=== PATIENT | female | born 1945 | race Caucasian/White ===

== ENCOUNTER 2018-01-23 07:51 | Emergency (ER) | payer MEDICARE ==
[2018-01-23 07:56] VITALS: PULSE 102
--- NOTE | 2018-01-23 08:14 | ED ---
Upper Extremity HPI - General Chief Complaint: Extremity Injury, Upper Stated Complaint: SLID DOWN STAIRS, BACK AND LEFT SHOULDER INJURY Time Seen by Provider: 01/23/18 07:59 Source: patient, family, RN notes reviewed, old records reviewed Mode of arrival: wheelchair Limitations: no limitations - History of Present Illness Initial Comments: Patient reports that she is a 72-year-old female presents emergency department today chief complaining of a fall down approximately 9 stairs yesterday. Patient states that she was walking down her stairs and slipped at the fourth stair from the top. Patient states that she fell on her bottom and slid down the stairs. Patient states that she has no lower extremity pain or lower back pain. She states that she has no chest pain or shortness of breath or abdominal pain. She denies any specific head injury and denies any loss of consciousness. Patient today complains of left shoulder and clavicular pain. Patient reports that the rail was on the right side. She thinks that she may try to grab onto the rail to prevent her from falling and she pulled her arm. Patient states that she took aspirin earlier today. She has significant ALLERGIES to pain medications and states that she becomes very altered when she would take pain medications.she denies any peripheral paresthesias. She denies any elbow or hand pain. She reports that there is pain with range of motion of her shoulder. - Related Data Home Medications Medication Instructions Recorded Confirmed Albuterol Nebulized [Ventolin 2.5 mg INHALATION RT-Q6H PRN 04/09/14 01/23/18 Nebulized] Ascorbic Acid [Vitamin C] 500 mg PO DAILY 04/09/14 01/23/18 Budesonide [Pulmicort] 1 neb INHALATION RT-BID 04/09/14 01/23/18 Calcium Citrate/Vitamin D3 1 tab PO BID 04/09/14 01/23/18 [Calcium Citrate - Vit D3 Tab] Magnesium 400 mg PO DAILY 04/09/14 01/23/18 Albuterol Sulfate [Proair Hfa] 1 - 2 puff INHALATION RT-Q6H PRN 01/23/18 Aspirin 325 mg PO ONCE 01/23/18 01/23/18 Ferrous Sulfate [Feosol] 325 mg PO DAILY 01/23/18 01/23/18 Ibuprofen [Motrin Ib] 200 mg PO ONCE 01/23/18 01/23/18 Previous Rx's Medication Instructions Recorded Cyclobenzaprine [Flexeril] 5 mg PO TID #15 tablet 01/23/18 Allergies Allergy/AdvReac Type Severity Reaction Status Date / Time acetaminophen [From Tylenol] Allergy Unknown Verified 01/23/18 08:20 Antihistamines - Alkylamine Allergy Anaphylaxis Verified 01/23/18 08:20 lorazepam [From Ativan] Allergy psychotic Verified 01/23/18 08:20 behavior shellfish derived Allergy Swelling Verified 01/23/18 08:20 Sulfa (Sulfonamide Allergy Unknown Verified 01/23/18 08:20 Antibiotics) alprazolam [From Xanax] AdvReac psychotic Verified 01/23/18 08:20 behavior codeine AdvReac Vomiting Verified 01/23/18 08:20 Corticosteroids AdvReac psychotic Verified 01/23/18 08:20 (Glucocorticoids) reaction Review of Systems ROS Statement: Those systems with pertinent positive or pertinent negative responses have been documented in the HPI. ROS Other: All systems not noted in ROS Statement are negative. Past Medical History Past Medical History: Asthma Additional Past Medical History / Comment(s): BRONCHITIS, ANEMIA, POST MENOPAUSAL, CURRENTLY POS OCCULT STOOL History of Any Multi-Drug Resistant Organisms: None Reported Past Surgical History: No Surgical Hx Reported Additional Past Surgical History / Comment(s): EGD 6 Past Anesthesia/Blood Transfusion Reactions: Motion Sickness Additional Past Anesthesia/Blood Transfusion Reaction / Comment(s): NEVER HAS HAD GENERAL ANESTHESIA Past Psychological History: No Psychological Hx Reported Smoking Status: Current every day smoker Past Alcohol Use History: None Reported Past Drug Use History: None Reported - Past Family History Sister(s) Family Medical History: Cancer Additional Family Medical History / Comment(s): COLON CA General Exam - General Exam Comments Initial Comments: this is a 72-year-old female. Patient is alert and oriented 4. No acute distress. Limitations: no limitations General appearance: alert, in no apparent distress Head exam: Present: atraumatic, normocephalic, normal inspection Eye exam: Present: normal appearance, PERRL, EOMI. Absent: scleral icterus, conjunctival injection, periorbital swelling ENT exam: Present: normal exam, mucous membranes moist Neck exam: Present: normal inspection. Absent: tenderness, meningismus, lymphadenopathy Respiratory exam: Present: normal lung sounds bilaterally. Absent: respiratory distress, wheezes, rales, rhonchi, stridor Cardiovascular Exam: Present: regular rate, normal rhythm, normal heart sounds. Absent: systolic murmur, diastolic murmur, rubs, gallop, clicks GI/Abdominal exam: Present: soft, normal bowel sounds. Absent: distended, tenderness, guarding, rebound, rigid Left Shoulder Exam: Present: normal inspection, tenderness (tenderness over the clavicular head.). Absent: full ROM (patient is unable to flex or extend patient shoulder.) Upper Arm exam: Present: normal inspection, full ROM Elbow exam: Present: normal inspection, full ROM Forearm Wrist exam: Present: normal inspection, full ROM Hand Wrist exam: Present: normal inspection, full ROM Course Vital Signs 01/23/18 01/23/18 07:54 10:12 Temperature 98.5 F 98 F Pulse Rate 102 H 102 H Respiratory 20 16 Rate Blood Pressure 140/89 124/86 O2 Sat by Pulse 98 96 Oximetry Medical Decision Making - Medical Decision Making Patient reports that she is a 72-year-old female presents emergency department today chief complaining of a fall down approximately 9 stairs yesterday. Patient denies any otherpain besides left shoulder and clavicle. She has a small contusion over sternal knotch of clavicle. She has limited ROM. Shoulder and clavicle xray show no acute fracture or dislocation. Patient was placed in a sling. Cervical spine xray also obtained and shows no acute process. Patient informed to follow up with PCP and ortho. Discussed return parameters. She reports that she cannot take pain medication, but requests small dose of muscle relaxer. - Radiology Data Radiology results: report reviewed Cspine shows no acute fracture or subluxaation within limitations of exam. Osteopenia. DDD. No acute fracture or dislocation of left clavicle and shoulder. Disposition Clinical Impression: Left shoulder pain, Clavicle fracture, sternal end Disposition: HOME SELF-CARE Condition: Good Instructions: Rotator Cuff Injury (ED) Additional Instructions: patient denies follow-up with environmental specialist. Return to the emergency department if any alarming signs or symptoms occur. Take aspirin or Motrin pain. He cannot see his muscle relaxer as needed for sleep. Return to emergency department if any alarming signs or symptoms occur. Prescriptions: Cyclobenzaprine [Flexeril] 5 mg PO TID #15 tablet Referrals: Adam Blakely DO [Primary Care Provider] - 1-2 days Oli Noel DO [Doctor of Osteopathic Medicine] - 1-2 days Sae Pierre MD [STAFF PHYSICIAN] - 1-2 days Adam Silverman DO [Doctor of Osteopathic Medicine] - 1-2 days Time of Disposition: 09:41
--- NOTE | 2018-01-23 08:36 | XR ---
Cervical spine HISTORY: Trauma and pain 3 views of the cervical spine No comparisons Cervical vertebral bodies show preserved height and alignment, bone mineralization is reduced. There is spondylosis present especially at C4-5, C5-6 with associated loss of disc height. Prevertebral sof t tissues are normal. Possible carotid artery calcifications noted incidentally. Odontoid view somewh at limited. IMPRESSION: No acute fracture or subluxation is evident within the limitations of the exam. Osteopeni a. Degenerative disc disease.
--- NOTE | 2018-01-23 08:46 | XR ---
EXAMINATION TYPE: XR shoulder complete LT, XR clavicle LT DATE OF EXAM: 01/23/2018 CLINICAL HISTORY: Left shoulder and clavicular pain TECHNIQUE: Three views of the left shoulder are obtained. Two views of left clavicle are obtained. COMPARISON: None. FINDINGS: Osseous structures are demineralized which is noted to lower radiographic sensitivity. The re is no acute fracture/dislocation evident in the left shoulder. The acromioclavicular and glenohum eral joint spaces appear within normal limits. The visualized ribs are intact and unremarkable. 2 views of left clavicle show no acute fracture. There is well-defined deformity proximal clavicle fa voring product of old trauma. Overlying soft tissue is unremarkable. Sternoclavicular joint is felt m aintained. IMPRESSION: There is no acute fracture or dislocation in the left clavicle or shoulder.
[2018-01-23 10:15] VITALS: BP 124/86; RESP 16; TEMP 98
--- NOTE | 2018-01-24 02:47 | CDI ---
Documentation Clarification OP Dear Shaylee Mcdowell PAC Please do addendum to ED report for missing clavicle fracture specific site (RT/ LT) Thank you, Sourav Horton [employer] Home [employer] If you have any questions, please contact Valve Inserter at [phone] [facility]
== END 2018-01-23 10:09 | disposition home or self-care (01) ==
LOC: EC 07:51
DX: M25.512 Pain in left shoulder (principal); J45.909 Unspecified asthma, uncomplicated; D64.9 Anemia, unspecified; F17.200 Nicotine dependence, unspecified, uncomplicated; Z79.1 Long term (current) use of non-steroidal anti-inflammatories (NSAID); Z79.51 Long term (current) use of inhaled steroids; Z79.82 Long term (current) use of aspirin; Z79.899 Other long term (current) drug therapy; Z88.6 Allergy status to analgesic agent; Z88.8 Allergy status to other drugs, medicaments and biological substances; Z91.013 Allergy to seafood; Z88.2 Allergy status to sulfonamides; Z88.5 Allergy status to narcotic agent; W10.9XXA Fall (on) (from) unspecified stairs and steps, initial encounter; Y93.01 Activity, walking, marching and hiking; Y92.009 Unspecified place in unspecified non-institutional (private) residence as the place of occurrence of the external cause
CPT/HCPCS: 72040; 99284

== ENCOUNTER 2018-03-22 09:17 | Emergency (ER) | payer MEDICARE ==
[2018-03-22] MEDS ORDERED: SODIUM CHLORIDE 0.9% 1,000 ML IV STA (10:02)
[2018-03-22] MEDS ORDERED: SODIUM CHLORIDE 0.9% 500 ML IV STA (10:02)
[2018-03-22] MEDS ORDERED: ONDANSETRON 4 MG/2 ML VIAL IVP STA (10:04)
[2018-03-22] MEDS ORDERED: FAMOTIDINE 20 MG/2 ML VIAL IV STA (10:04)
--- NOTE | 2018-03-22 10:07 | ED ---
General Adult HPI - General Chief complaint: Nausea/Vomiting/Diarrhea Stated complaint: vomiting Time Seen by Provider: 03/22/18 09:35 Source: patient, family, RN notes reviewed Mode of arrival: wheelchair Limitations: no limitations - History of Present Illness Initial comments: Patient is a pleasant 72-year-old female presenting to the emergency Department with vomiting. Onset of symptoms was sometime around 4 AM. Patient has had several episodes. Patient does feel somewhat lightheaded. Patient did have a mild headache however that is near resolved with aspirin. No constipation or diarrhea. No significant abdominal discomfort. No chest discomfort. Patient does feel slightly more short of breath than her normal COPD however states it is not that bad. Patient refuses breathing treatment at this time. - Related Data Home Medications Medication Instructions Recorded Confirmed Albuterol Nebulized [Ventolin 2.5 mg INHALATION RT-BID PRN 04/09/14 03/22/18 Nebulized] Ascorbic Acid [Vitamin C] 500 mg PO DAILY 04/09/14 03/22/18 Budesonide [Pulmicort] 0.5 mg INHALATION RT-BID 04/09/14 03/22/18 Magnesium 400 mg PO DAILY 04/09/14 03/22/18 Albuterol Sulfate [Proair Hfa] 1 - 2 puff INHALATION RT-Q6H PRN 01/23/18 Aspirin 325 mg PO DAILY 01/23/18 03/22/18 B-Total Liquid 1 oz PO DAILY 03/22/18 03/22/18 Calcium Citrate 250 mg PO DAILY 03/22/18 03/22/18 Cholecalciferol [Vitamin D3] 4,000 unit PO DAILY 03/22/18 03/22/18 Ferrous Sulfate [Feosol] 325 mg PO DAILY 03/22/18 03/22/18 Previous Rx's Medication Instructions Recorded Azithromycin [Zithromax Z-pack] 250 mg PO DIRECTED #6 tab 03/22/18 Metoclopramide HCl [Reglan] 10 mg PO Q6HR PRN #15 tablet 03/22/18 Allergies Allergy/AdvReac Type Severity Reaction Status Date / Time acetaminophen [From Tylenol] Allergy Unknown Verified 03/22/18 09:45 Antihistamines - Alkylamine Allergy Anaphylaxis Verified 03/22/18 09:45 lorazepam [From Ativan] Allergy psychotic Verified 03/22/18 09:45 behavior shellfish derived Allergy Swelling Verified 03/22/18 09:45 Sulfa (Sulfonamide Allergy Unknown Verified 03/22/18 09:45 Antibiotics) alprazolam [From Xanax] AdvReac psychotic Verified 03/22/18 09:45 behavior codeine AdvReac Vomiting Verified 03/22/18 09:45 Corticosteroids AdvReac psychotic Verified 03/22/18 09:45 (Glucocorticoids) reaction Review of Systems ROS Statement: Those systems with pertinent positive or pertinent negative responses have been documented in the HPI. ROS Other: All systems not noted in ROS Statement are negative. Constitutional: Denies: fever Eyes: Denies: eye pain ENT: Denies: ear pain Respiratory: Denies: cough Cardiovascular: Denies: chest pain Endocrine: Denies: fatigue Gastrointestinal: Reports: nausea, vomiting Genitourinary: Denies: dysuria Musculoskeletal: Denies: back pain Skin: Denies: rash Neurological: Denies: weakness Past Medical History Past Medical History: Asthma Additional Past Medical History / Comment(s): BRONCHITIS, ANEMIA, POST MENOPAUSAL, CURRENTLY POS OCCULT STOOL History of Any Multi-Drug Resistant Organisms: None Reported Past Surgical History: No Surgical Hx Reported Additional Past Surgical History / Comment(s): EGD 04-10-14 Past Anesthesia/Blood Transfusion Reactions: Motion Sickness Additional Past Anesthesia/Blood Transfusion Reaction / Comment(s): NEVER HAS HAD GENERAL ANESTHESIA Past Psychological History: No Psychological Hx Reported Smoking Status: Current every day smoker Past Alcohol Use History: None Reported Past Drug Use History: None Reported - Past Family History Sister(s) Family Medical History: Cancer Additional Family Medical History / Comment(s): COLON [place] General Exam Limitations: no limitations General appearance: alert, in no apparent distress Head exam: Present: atraumatic Eye exam: Present: normal appearance, PERRL ENT exam: Present: normal oropharynx Neck exam: Present: normal inspection Respiratory exam: Present: normal lung sounds bilaterally Cardiovascular Exam: Present: regular rate, normal rhythm GI/Abdominal exam: Present: soft, normal bowel sounds. Absent: distended, tenderness, guarding, rigid, pulsatile mass Extremities exam: Present: normal inspection. Absent: pedal edema, calf tenderness Neurological exam: Present: alert, CN II-XII intact. Absent: motor sensory deficit Psychiatric exam: Present: normal affect, normal mood Skin exam: Present: normal color Course Vital Signs 03/22/18 03/22/18 03/22/18 09:23 11:05 13:14 Temperature 98.1 F Pulse Rate 97 69 68 Respiratory 18 20 18 Rate Blood Pressure 113/71 109/68 115/78 O2 Sat by Pulse 95 96 94 L Oximetry EKG Findings - EKG Comments: EKG Findings:: Sinus rhythm at 86. UT 200. QRS 96. QT 400. QTc 478. Normal axis. Incomplete right bundle-branch block. No acute ST change. Medical Decision Making - Medical Decision Making Patient reevaluated and resting comfortably in bed. Patient is updated on results. Patient is updated regarding concerns for pneumonia and elevated white blood cell count. Patient is recommended admission with IV antibiotics. Patient refuses. Patient states she is unable to state why this time. Patient does demonstrate medical decision making. Family is present. - Lab Data Result diagrams: 03/22/18 10:55 03/22/18 10:55 Lab Results 03/22/18 03/22/18 03/22/18 Range/Units 10:55 10:55 10:55 WBC 20.7 H (3.8-10.6) k/uL RBC 4.81 (3.80-5.40) m/uL Hgb 13.9 (11.4-16.0) gm/dL Hct 42.8 (34.0-46.0) % MCV 89.0 (80.0-100.0) fL MCH 28.9 (25.0-35.0) pg MCHC 32.5 (31.0-37.0) g/dL RDW 13.8 (11.5-15.5) % Plt Count 301 (150-450) k/uL Neutrophils % 91 % Lymphocytes % 6 % Monocytes % 2 % Eosinophils % 0 % Basophils % 0 % Neutrophils # 18.8 H (1.3-7.7) k/uL Lymphocytes # 1.2 (1.0-4.8) k/uL Monocytes # 0.4 (0-1.0) k/uL Eosinophils # 0.1 (0-0.7) k/uL Basophils # 0.0 (0-0.2) k/uL Sodium 142 (137-145) mmol/L Potassium 4.1 (3.5-5.1) mmol/L Chloride 103 (98-107) mmol/L Carbon Dioxide 27 (22-30) mmol/L Anion Gap 12 mmol/L BUN 18 H (7-17) mg/dL Creatinine 0.70 (0.52-1.04) mg/dL Est GFR (CKD-EPI)AfAm >90 (>60 ml/min/1.73 sqM) Est GFR (CKD-EPI)NonAf 87 (>60 ml/min/1.73 sqM) Glucose 90 (74-99) mg/dL Calcium 10.2 (8.4-10.2) mg/dL Total Bilirubin 1.0 (0.2-1.3) mg/dL AST 30 (14-36) U/L ALT 27 (9-52) U/L Alkaline Phosphatase 68 (38-126) U/L Total Creatine Kinase 54 (30-135) U/L CK-MB (CK-2) 0.9 (0.0-2.4) ng/mL CK-MB (CK-2) Rel Index 1.7 Troponin I <0.012 (0.000-0.034) ng/mL Total Protein 6.8 (6.3-8.2) g/dL Albumin 4.1 (3.5-5.0) g/dL Amylase 43 (30-110) U/L Lipase 86 (23-300) U/L Urine Color Urine Appearance (Clear) Urine pH (5.0-8.0) Ur Specific [place] (1.001-1.035) Urine Protein (Negative) Urine Glucose (UA) (Negative) Urine Ketones (Negative) Urine Blood (Negative) Urine Nitrite (Negative) Urine Bilirubin (Negative) Urine Urobilinogen (<2.0) mg/dL Ur Leukocyte Esterase (Negative) 03/22/18 Range/Units 10:55 WBC (3.8-10.6) k/uL RBC (3.80-5.40) m/uL Hgb (11.4-16.0) gm/dL Hct (34.0-46.0) % MCV (80.0-100.0) fL MCH (25.0-35.0) pg MCHC (31.0-37.0) g/dL RDW (11.5-15.5) % Plt Count (150-450) k/uL Neutrophils % % Lymphocytes % % Monocytes % % Eosinophils % % Basophils % % Neutrophils # (1.3-7.7) k/uL Lymphocytes # (1.0-4.8) k/uL Monocytes # (0-1.0) k/uL Eosinophils # (0-0.7) k/uL Basophils # (0-0.2) k/uL Sodium (137-145) mmol/L Potassium (3.5-5.1) mmol/L Chloride (98-107) mmol/L Carbon Dioxide (22-30) mmol/L Anion Gap mmol/L BUN (7-17) mg/dL Creatinine (0.52-1.04) mg/dL Est GFR (CKD-EPI)AfAm (>60 ml/min/1.73 sqM) Est GFR (CKD-EPI)NonAf (>60 ml/min/1.73 sqM) Glucose (74-99) mg/dL Calcium (8.4-10.2) mg/dL Total Bilirubin (0.2-1.3) mg/dL AST (14-36) U/L ALT (9-52) U/L Alkaline Phosphatase (38-126) U/L Total Creatine Kinase (30-135) U/L CK-MB (CK-2) (0.0-2.4) ng/mL CK-MB (CK-2) Rel Index Troponin I (0.000-0.034) ng/mL Total Protein (6.3-8.2) g/dL Albumin (3.5-5.0) g/dL Amylase (30-110) U/L Lipase (23-300) U/L Urine Color Light Yellow Urine Appearance Clear (Clear) Urine pH 7.0 (5.0-8.0) Ur Specific [place] 1.008 (1.001-1.035) Urine Protein Negative (Negative) Urine Glucose (UA) Negative (Negative) Urine Ketones Trace H (Negative) Urine Blood Negative (Negative) Urine Nitrite Negative (Negative) Urine Bilirubin Negative (Negative) Urine Urobilinogen <2.0 (<2.0) mg/dL Ur Leukocyte Esterase Negative (Negative) - Radiology Data Radiology results: image reviewed (Left lower lobe infiltrate) Disposition Clinical Impression: Vomiting, Pneumonia Disposition: Left Against Medical Advice Condition: Stable Instructions: Acute Nausea and Vomiting (ED), Community Acquired Pneumonia (ED) Additional Instructions: Please follow-up to primary care physician in the next day or 2 for recheck. Return for difficulty in breathing, uncontrolled vomiting, pain, fever, worsening symptoms or other concerns. You're leaving AGAINST MEDICAL ADVICE. Prescriptions: Azithromycin [Zithromax Z-pack] 250 mg PO DIRECTED #6 tab Metoclopramide HCl [Reglan] 10 mg PO Q6HR PRN #15 tablet PRN Reason: Nausea Is patient prescribed a controlled substance at d/c from ED?: No Referrals: Adam Blakely DO [Primary Care Provider] - 1-2 days Time of Disposition: 13:29
[2018-03-22 11:22] LABS: Appearance,Urine Clear (Clear); Bilirubin,Urine Negative (Negative); Blood,Urine Negative (Negative); Color,Urine Light Yellow; Glucose,Urine (UA) Negative (Negative); Ketones,Urine Trace (Negative); Leukocyte Esterase,Urine Negative (Negative); Nitrite,Urine Negative (Negative); Protein,Urine Negative (Negative); Specific Gravity,Urine 1.008 (1.001-1.035); Urobilinogen,Urine <2.0 mg/dL (<2.0)
[2018-03-22 11:34] LABS: ALT 27 U/L (9-52); AST 30 U/L (14-36); Albumin 4.1 g/dL (3.5-5.0); Alkaline Phosphatase 68 U/L (38-126); Amylase 43 U/L (30-110); Anion Gap 12 mmol/L; Blood Urea Nitrogen 18 mg/dL (7-17); Calcium 10.2 mg/dL (8.4-10.2); Carbon Dioxide 27 mmol/L (22-30); Chloride 103 mmol/L (98-107); Glucose 90 mg/dL (74-99); Lipase 86 U/L (23-300); Potassium 4.1 mmol/L (3.5-5.1); Sodium 142 mmol/L (137-145); Total Protein 6.8 g/dL (6.3-8.2)
[2018-03-22 11:41] LABS: Basophils % (A) 0 %; Eosinophils # (A) 0.1 k/uL (0-0.7); Eosinophils % (A) 0 %; HCT 42.8 % (34.0-46.0); HGB 13.9 gm/dL (11.4-16.0); Lymphocytes # (A) 1.2 k/uL (1.0-4.8); Lymphocytes % (A) 6 %; MCH 28.9 pg (25.0-35.0); MCHC 32.5 g/dL (31.0-37.0); Mean Platelet Volume 6.3; Monocytes # (A) 0.4 k/uL (0-1.0); Monocytes % (A) 2 %; Neutrophils # (A) 18.8 k/uL (1.3-7.7); Neutrophils % (A) 91 %; Platelet Count 301 k/uL (150-450); RBC 4.81 m/uL (3.80-5.40); RDW 13.8 % (11.5-15.5); WBC 20.7 k/uL (3.8-10.6)
[2018-03-22 11:51] LABS: Creatine Kinase 54 U/L (30-135)
[2018-03-22 12:02] LABS: Creatine Kinase MB 0.9 ng/mL (0.0-2.4); Troponin I <0.012 ng/mL (0.000-0.034)
--- NOTE | 2018-03-22 12:07 | XR ---
EXAMINATION TYPE: XR chest 2V DATE OF EXAM: 03/22/2018 COMPARISON: NONE TECHNIQUE: PA and lateral views submitted. HISTORY: Shortness of breath FINDINGS: The lungs are clear and there is no pneumothorax or pleural effusion. Hyperinflation suggests COPD a nd there is biapical pleural thickening. Hypertrophic and degenerative change of the spine is seen of subsegmental consolidation at the left lung base. IMPRESSION: 1. COPD with left basilar infiltrate.
[2018-03-22 13:16] VITALS: RESP 18
[2018-03-22] MEDS ORDERED: cefTRIAXone IN SWFI 1,000 MG/10 ML SYRINGE IVP STA (13:26)
[2018-03-22 13:39] VITALS: BP 129/81; PULSE 96; TEMP 97.1
== END 2018-03-22 13:56 | disposition left against medical advice (07) ==
LOC: EC 09:17
DX: J18.9 Pneumonia, unspecified organism (principal); R11.2 Nausea with vomiting, unspecified; R42 Dizziness and giddiness; R51 Headache; J45.909 Unspecified asthma, uncomplicated; D64.9 Anemia, unspecified; F17.200 Nicotine dependence, unspecified, uncomplicated; Z79.82 Long term (current) use of aspirin; Z79.899 Other long term (current) drug therapy; Z88.5 Allergy status to narcotic agent; Z88.2 Allergy status to sulfonamides; Z91.013 Allergy to seafood; Z88.6 Allergy status to analgesic agent; Z88.8 Allergy status to other drugs, medicaments and biological substances; Z53.29 Procedure and treatment not carried out because of patient's decision for other reasons
CPT/HCPCS: 36415; 93005; 80053; 82150; 82550; 82553; 83690; 84484; 85025; 81003; 71046; 99284; 96374; 96375; 96361 ×3; J0696

== ENCOUNTER 2020-04-02 10:59 | Emergency (ER) | payer MEDICARE ==
[2020-04-02 11:12] VITALS: RESP 18
[2020-04-02] MEDS ORDERED: SODIUM CHLORIDE 0.9% 500 ML 500 ML IV STA (11:27)
--- NOTE | 2020-04-02 11:30 | ED ---
General Adult HPI - General Chief complaint: Weakness Stated complaint: copd/unable to eat Time Seen by Provider: 04/02/20 11:16 Source: patient, RN notes reviewed Mode of arrival: ambulatory Limitations: no limitations - History of Present Illness Initial comments: 74-year-old female with a past medical history of COPD, anemia, bronchitis presents to the emergency department for multiple complaints. Patient states that last week she had some increased shortness of breath. States she noticed this when she was walking out to the road to get the mail. Patient states it improved but it made her very anxious and she has not been able to eat or drink. States that she is concerned her hemoglobin to be low which made her fall several years ago. Patient states that she believes she cannot eat or drink anything because of anxiety. States she doesn't have an appetite and can't force herself to drink. Patient denies chest pain. Denies abdominal pain. Denies nausea vomiting diarrhea.patient denies any increased shortness of breath specifically at this time. Patient has no other complaints at this time including chest pain, abdominal pain, nausea or vomiting, headache, or visual changes. - Related Data Home Medications Medication Instructions Recorded Confirmed Albuterol Nebulized [Ventolin 2.5 mg INHALATION RT-BID PRN 04/09/14 03/22/18 Nebulized] Ascorbic Acid [Vitamin C] 500 mg PO DAILY 04/09/14 03/22/18 Budesonide [Pulmicort] 0.5 mg INHALATION RT-BID 04/09/14 03/22/18 Magnesium 400 mg PO DAILY 04/09/14 03/22/18 Albuterol Sulfate [Proair Hfa] 1 - 2 puff INHALATION RT-Q6H PRN 01/23/18 03/22/18 Aspirin 325 mg PO DAILY 01/23/18 03/22/18 B-Total Liquid 1 oz PO DAILY 03/22/18 03/22/18 Calcium Citrate 250 mg PO DAILY 03/22/18 03/22/18 Cholecalciferol [Vitamin D3] 4,000 unit PO DAILY 03/22/18 03/22/18 Ferrous Sulfate [Feosol] 325 mg PO DAILY 03/22/18 03/22/18 Previous Rx's Medication Instructions Recorded Azithromycin [Zithromax Z-pack] 250 mg PO DIRECTED #6 tab 03/22/18 Metoclopramide HCl [Reglan] 10 mg PO Q6HR PRN #15 tablet 03/22/18 Allergies Allergy/AdvReac Type Severity Reaction Status Date / Time acetaminophen [From Tylenol] Allergy Unknown Verified 04/02/20 11:13 Antihistamines - Alkylamine Allergy Anaphylaxis Verified 04/02/20 11:13 lorazepam [From Ativan] Allergy psychotic Verified 04/02/20 11:13 behavior shellfish derived Allergy Swelling Verified 04/02/20 11:13 Sulfa (Sulfonamide Allergy Unknown Verified 04/02/20 11:13 Antibiotics) alprazolam [From Xanax] AdvReac psychotic Verified 04/02/20 11:13 behavior codeine AdvReac Vomiting Verified 04/02/20 11:13 Corticosteroids AdvReac psychotic Verified 04/02/20 11:13 (Glucocorticoids) reaction Review of Systems ROS Statement: Those systems with pertinent positive or pertinent negative responses have been documented in the HPI. ROS Other: All systems not noted in ROS Statement are negative. Past Medical History Past Medical History: Asthma, COPD Additional Past Medical History / Comment(s): BRONCHITIS, ANEMIA, POST MENOPAUSAL, CURRENTLY POS OCCULT STOOL History of Any Multi-Drug Resistant Organisms: None Reported Past Surgical History: No Surgical Hx Reported Additional Past Surgical History / Comment(s): EGD 6-04-18 Past Anesthesia/Blood Transfusion Reactions: Motion Sickness Additional Past Anesthesia/Blood Transfusion Reaction / Comment(s): NEVER HAS HAD GENERAL ANESTHESIA Past Psychological History: Anxiety Smoking Status: Current every day smoker Past Alcohol Use History: None Reported Past Drug Use History: None Reported - Past Family History Sister(s) Family Medical History: Cancer Additional Family Medical History / Comment(s): COLON [place] General Exam Limitations: no limitations General appearance: alert, in no apparent distress Head exam: Present: atraumatic, normocephalic, normal inspection Eye exam: Present: normal appearance, PERRL, EOMI. Absent: scleral icterus, conjunctival injection, periorbital swelling ENT exam: Present: normal exam, mucous membranes moist Neck exam: Present: normal inspection, full ROM. Absent: tenderness, meningismu s, lymphadenopathy Respiratory exam: Present: normal lung sounds bilaterally. Absent: respiratory distress, wheezes, rales, rhonchi, stridor Cardiovascular Exam: Present: regular rate, normal rhythm, normal heart sounds. Absent: systolic murmur, diastolic murmur, rubs, gallop, clicks GI/Abdominal exam: Present: soft, normal bowel sounds. Absent: distended, tenderness, guarding, rebound, rigid Neurological exam: Present: alert Course Vital Signs 04/02/20 11:08 Temperature 98.2 F Pulse Rate 86 Respiratory 18 Rate Blood Pressure 115/80 O2 Sat by Pulse 97 Oximetry EKG Findings - EKG Comments: EKG Findings:: Normal sinus rhythm, ventricular rate 90, CO int 180, QTc 462 Medical Decision Making - Medical Decision Making Vitals are stable. Patient is well-appearing. Patient presents as she has not been having much of an appetite. Patient states she never has much of an appetite. States she has not been eating or drinking as of this. CBC CMP and her [place]. Troponin is negative. Urinalysis is negative. No ketones. EKG is unremarkable. Patient was given fluids and reevaluated. She does feel a little bit better. I had a lengthy discussion with patient about how to increase her food and drink. Patient also drinks 8 cups of coffee per day and will limit this as this could be contributing to feelings of anxiety and fullness. Patient and her daughter are both comfortable with patient going home. I did offer coronavirus testing but family refuses stating that she has not been out of the house and does not want this testing. They will follow up with her primary care. However they will return for any worsening symptoms.I discussed this case with attending Dr. Nguyễn who agrees with this assessment and treatment plan. - Lab Data Result diagrams: 04/02/20 12:05 04/02/20 12:05 Lab Results 04/02/20 04/02/20 04/02/20 Range/Units 12:05 12:05 12:05 WBC 8.5 (3.8-10.6) k/uL RBC 4.54 (3.80-5.40) m/uL Hgb 12.8 (11.4-16.0) gm/dL Hct 40.8 (34.0-46.0) % MCV 89.8 (80.0-100.0) fL MCH 28.2 (25.0-35.0) pg MCHC 31.4 (31.0-37.0) g/dL RDW 12.5 (11.5-15.5) % Plt Count 446 (150-450) k/uL Neutrophils % 85 % Lymphocytes % 9 % Monocytes % 3 % Eosinophils % 1 % Basophils % 0 % Neutrophils # 7.2 (1.3-7.7) k/uL Lymphocytes # 0.8 L (1.0-4.8) k/uL Monocytes # 0.3 (0-1.0) k/uL Eosinophils # 0.1 (0-0.7) k/uL Basophils # 0.0 (0-0.2) k/uL Hypochromasia Slight PT 10.1 (9.0-12.0) sec INR 1.0 (<1.2) APTT 23.8 (22.0-30.0) sec Sodium (137-145) mmol/L Potassium (3.5-5.1) mmol/L Chloride (98-107) mmol/L Carbon Dioxide (22-30) mmol/L Anion Gap mmol/L BUN (7-17) mg/dL Creatinine (0.52-1.04) mg/dL Est GFR (CKD-EPI)AfAm (>60 ml/min/1.73 sqM) Est GFR (CKD-EPI)NonAf (>60 ml/min/1.73 sqM) Glucose (74-99) mg/dL Plasma Lactic Acid Blas (0.7-2.0) mmol/L Calcium (8.4-10.2) mg/dL Magnesium (1.6-2.3) mg/dL Total Bilirubin (0.2-1.3) mg/dL AST (14-36) U/L ALT (4-34) U/L Alkaline Phosphatase (38-126) U/L Troponin I (0.000-0.034) ng/mL NT-Pro-B Natriuret Pep pg/mL Total Protein (6.3-8.2) g/dL Albumin (3.5-5.0) g/dL Urine Color Yellow Urine Appearance Clear (Clear) Urine pH 7.5 (5.0-8.0) Ur Specific [place] 1.012 (1.001-1.035) Urine Protein Negative (Negative) Urine Glucose (UA) Negative (Negative) Urine Ketones Negative (Negative) Urine Blood Negative (Negative) Urine Nitrite Negative (Negative) Urine Bilirubin Negative (Negative) Urine Urobilinogen <2.0 (<2.0) mg/dL Ur Leukocyte Esterase Negative (Negative) 04/02/20 04/02/20 04/02/20 Range/Units 12:05 12:05 12:05 WBC (3.8-10.6) k/uL RBC (3.80-5.40) m/uL Hgb (11.4-16.0) gm/dL Hct (34.0-46.0) % MCV (80.0-100.0) fL MCH (25.0-35.0) pg MCHC (31.0-37.0) g/dL RDW (11.5-15.5) % Plt Count (150-450) k/uL Neutrophils % % Lymphocytes % % Monocytes % % Eosinophils % % Basophils % % Neutrophils # (1.3-7.7) k/uL Lymphocytes # (1.0-4.8) k/uL Monocytes # (0-1.0) k/uL Eosinophils # (0-0.7) k/uL Basophils # (0-0.2) k/uL Hypochromasia PT (9.0-12.0) sec INR (<1.2) APTT (22.0-30.0) sec Sodium 138 (137-145) mmol/L Potassium 4.2 (3.5-5.1) mmol/L Chloride 104 (98-107) mmol/L Carbon Dioxide 27 (22-30) mmol/L Anion Gap 7 mmol/L BUN 12 (7-17) mg/dL Creatinine 0.61 (0.52-1.04) mg/dL Est GFR (CKD-EPI)AfAm >90 (>60 ml/min/1.73 sqM) Est GFR (CKD-EPI)NonAf >90 (>60 ml/min/1.73 sqM) Glucose 97 (74-99) mg/dL Plasma Lactic Acid Blas 1.0 (0.7-2.0) mmol/L Calcium 9.6 (8.4-10.2) mg/dL Magnesium 2.1 (1.6-2.3) mg/dL Total Bilirubin 0.2 (0.2-1.3) mg/dL AST 27 (14-36) U/L ALT 17 (4-34) U/L Alkaline Phosphatase 70 (38-126) U/L Troponin I <0.012 (0.000-0.034) ng/mL NT-Pro-B Natriuret Pep pg/mL Total Protein 6.5 (6.3-8.2) g/dL Albumin 3.5 (3.5-5.0) g/dL Urine Color Urine Appearance (Clear) Urine pH (5.0-8.0) Ur Specific [place] (1.001-1.035) Urine Protein (Negative) Urine Glucose (UA) (Negative) Urine Ketones (Negative) Urine Blood (Negative) Urine Nitrite (Negative) Urine Bilirubin (Negative) Urine Urobilinogen (<2.0) mg/dL Ur Leukocyte Esterase (Negative) 04/02/20 Range/Units 12:05 WBC (3.8-10.6) k/uL RBC (3.80-5.40) m/uL Hgb (11.4-16.0) gm/dL Hct (34.0-46.0) % MCV (80.0-100.0) fL MCH (25.0-35.0) pg MCHC (31.0-37.0) g/dL RDW (11.5-15.5) % Plt Count (150-450) k/uL Neutrophils % % Lymphocytes % % Monocytes % % Eosinophils % % Basophils % % Neutrophils # (1.3-7.7) k/uL Lymphocytes # (1.0-4.8) k/uL Monocytes # (0-1.0) k/uL Eosinophils # (0-0.7) k/uL Basophils # (0-0.2) k/uL Hypochromasia PT (9.0-12.0) sec INR (<1.2) APTT (22.0-30.0) sec Sodium (137-145) mmol/L Potassium (3.5-5.1) mmol/L Chloride (98-107) mmol/L Carbon Dioxide (22-30) mmol/L Anion Gap mmol/L BUN (7-17) mg/dL Creatinine (0.52-1.04) mg/dL Est GFR (CKD-EPI)AfAm (>60 ml/min/1.73 sqM) Est GFR (CKD-EPI)NonAf (>60 ml/min/1.73 sqM) Glucose (74-99) mg/dL Plasma Lactic Acid Blas (0.7-2.0) mmol/L Calcium (8.4-10.2) mg/dL Magnesium (1.6-2.3) mg/dL Total Bilirubin (0.2-1.3) mg/dL AST (14-36) U/L ALT (4-34) U/L Alkaline Phosphatase (38-126) U/L Troponin I (0.000-0.034) ng/mL NT-Pro-B Natriuret Pep 149 pg/mL Total Protein (6.3-8.2) g/dL Albumin (3.5-5.0) g/dL Urine Color Urine Appearance (Clear) Urine pH (5.0-8.0) Ur Specific [place] (1.001-1.035) Urine Protein (Negative) Urine Glucose (UA) (Negative) Urine Ketones (Negative) Urine Blood (Negative) Urine Nitrite (Negative) Urine Bilirubin (Negative) Urine Urobilinogen (<2.0) mg/dL Ur Leukocyte Esterase (Negative) Disposition Clinical Impression: Decreased appetite Disposition: TRANSFER TO PSYCH HOSP/UNIT Condition: Fair Instructions (If sedation given, give patient instructions): Weakness (ED) Additional Instructions: Please try increasing your intake with soft foods, Pedialyte, Gatorade, and water. Follow-up with your primary care provider in one to 2 days. If you have any worsening symptoms return here to the emergency room. Is patient prescribed a controlled substance at d/c from ED?: No Referrals: Adam Blakely DO [Primary Care Provider] - 1-2 days Time of Disposition: 13:34
[2020-04-02 12:29] LABS: Basophils % (A) 0 %; Eosinophils # (A) 0.1 k/uL (0-0.7); Eosinophils % (A) 1 %; HCT 40.8 % (34.0-46.0); HGB 12.8 gm/dL (11.4-16.0); Hypochromasia Slight; Lymphocytes # (A) 0.8 k/uL (1.0-4.8); Lymphocytes % (A) 9 %; MCH 28.2 pg (25.0-35.0); MCHC 31.4 g/dL (31.0-37.0); MCV 89.8 fL (80.0-100.0); Mean Platelet Volume 7.1; Monocytes # (A) 0.3 k/uL (0-1.0); Monocytes % (A) 3 %; Neutrophils # (A) 7.2 k/uL (1.3-7.7); Neutrophils % (A) 85 %; Platelet Count 446 k/uL (150-450); RBC 4.54 m/uL (3.80-5.40); RDW 12.5 % (11.5-15.5); WBC 8.5 k/uL (3.8-10.6)
[2020-04-02 12:32] LABS: Appearance,Urine Clear (Clear); Bilirubin,Urine Negative (Negative); Blood,Urine Negative (Negative); Color,Urine Yellow; Glucose,Urine (UA) Negative (Negative); Ketones,Urine Negative (Negative); Leukocyte Esterase,Urine Negative (Negative); Nitrite,Urine Negative (Negative); PH, Urine 7.5 (5.0-8.0); Protein,Urine Negative (Negative); Specific Gravity,Urine 1.012 (1.001-1.035); Urobilinogen,Urine <2.0 mg/dL (<2.0)
--- NOTE | 2020-04-02 12:35 | XR ---
EXAMINATION TYPE: XR chest 2V DATE OF EXAM: 04/02/2020 COMPARISON: Prior chest 03/22/2018 HISTORY: Weakness TECHNIQUE: Frontal and lateral views of the chest are obtained. FINDINGS: Prominent lung volumes with flattening the hemidiaphragms suggests underlying COPD. The aor ta is dense and tortuous. Bone mineralization is reduced. Multilevel spondylosis. There is no pleura l effusion or pneumothorax seen. Minimal patchy basilar density present on the left. The cardiac silh ouette size is within normal limits. The osseous structures are intact. Apical pleural thickening n oted. IMPRESSION: Findings similar to prior exam.
[2020-04-02 12:43] LABS: ALT 17 U/L (4-34); AST 27 U/L (14-36); African American GFR (CKD) >90 (>60 ml/min/1.73 sqM); Albumin 3.5 g/dL (3.5-5.0); Alkaline Phosphatase 70 U/L (38-126); Anion Gap 7 mmol/L; Blood Urea Nitrogen 12 mg/dL (7-17); Calcium 9.6 mg/dL (8.4-10.2); Carbon Dioxide 27 mmol/L (22-30); Chloride 104 mmol/L (98-107); Glucose 97 mg/dL (74-99); Magnesium 2.1 mg/dL (1.6-2.3); Non-African American GFR(CKD) >90 (>60 ml/min/1.73 sqM); Potassium 4.2 mmol/L (3.5-5.1); Sodium 138 mmol/L (137-145); Total Bilirubin 0.2 mg/dL (0.2-1.3); Total Protein 6.5 g/dL (6.3-8.2)
[2020-04-02 12:45] LABS: Partial Thromboplastin Time 23.8 sec (22.0-30.0); Prothrombin Time 10.1 sec (9.0-12.0)
[2020-04-02 13:48] VITALS: BP 121/77; PULSE 87; TEMP 98.4
== END 2020-04-02 13:48 ==
LOC: EC 10:59
DX: R63.0 Anorexia (principal); J44.9 Chronic obstructive pulmonary disease, unspecified; F17.200 Nicotine dependence, unspecified, uncomplicated; Z79.82 Long term (current) use of aspirin; Z88.2 Allergy status to sulfonamides; Z88.5 Allergy status to narcotic agent; Z88.6 Allergy status to analgesic agent; Z88.8 Allergy status to other drugs, medicaments and biological substances; Z91.013 Allergy to seafood
CPT/HCPCS: 36415; 71046; 80053; 81003; 83605; 83735; 83880; 84484; 85025; 85610; 85730; 93005; 99285

== ENCOUNTER → 2020-09-02 | Outpatient (CLI) | payer MEDICARE ==
--- NOTE | 2020-09-02 11:43 | XR ---
EXAMINATION TYPE: XR chest 2V DATE OF EXAM: 09/02/2020 COMPARISON: Right chest x-ray 04/02/2020 HISTORY: COPD, cough TECHNIQUE: Frontal and lateral views of the chest are obtained. FINDINGS: There is no focal air space opacity, pleural effusion, or pneumothorax seen. The cardiac silhouette size is within normal limits, small and stable. There are prominent lung volumes with incr eased retrosternal airspace consistent with underlying COPD, there is flattening of hemidiaphragms. T he aorta is dense and tortuous. The osseous structures are intact, bone mineralization is reduced, possible spinal curvature. IMPRESSION: No acute cardiopulmonary process.
== END | disposition home or self-care (01) ==
LOC: RADXRYALE 10:29
PROVIDERS: ATTEND Physician Assistant Medical
DX: J44.9 Chronic obstructive pulmonary disease, unspecified (principal); R05 Cough
CPT/HCPCS: 71046

== ENCOUNTER 2021-01-13 09:48 | Emergency (ER) | payer MEDICARE ==
[2021-01-13 09:52] VITALS: TEMP 97.6
[2021-01-13] MEDS ORDERED: SODIUM CHLORIDE 0.9% 500 ML 500 ML IV STA (10:00)
--- NOTE | 2021-01-13 10:17 | ED ---
General Adult HPI - General Chief complaint: Weakness Stated complaint: Dizziness Time Seen by Provider: 01/13/21 09:55 Source: patient, family, RN notes reviewed, old records reviewed Mode of arrival: wheelchair Limitations: no limitations - History of Present Illness Initial comments: 75-year-old female presenting for evaluation of lightheadedness. Symptoms began this morning when the patient awoke. She states she had similar episode to this in the past which was associated with anemia. She states she felt palpitations about 2 days ago and these resolved spontaneously. She has reported palpitations as well as generalized weakness and fatigue. No focal weakness or numbness. No fever. No cough. No abdominal pain nausea vomiting. No lower extremity pain or swelling. She is quite healthy normally no history of CAD. No history of arrhythmia. - Related Data Home Medications Medication Instructions Recorded Confirmed Albuterol Nebulized [Ventolin 2.5 mg INHALATION RT-BID PRN 04/09/14 01/13/21 Nebulized] Ascorbic Acid [Vitamin C] 500 mg PO DAILY 04/09/14 01/13/21 Budesonide [Pulmicort] 0.5 mg INHALATION RT-BID 04/09/14 01/13/21 Magnesium 400 mg PO DAILY 04/09/14 01/13/21 Albuterol Sulfate [Proair Hfa] 2 puff INHALATION RT-Q6H PRN 01/23/18 01/13/21 Cholecalciferol [Vitamin D3] 4,000 unit PO DAILY 03/22/18 01/13/21 Ferrous Sulfate [Feosol] 325 mg PO DAILY 03/22/18 01/13/21 Calcium Citrate/Vitamin D3 2 tab PO DAILY 01/13/21 01/13/21 [Calcium Cit 315-Vit D3 6.25 Mcg (250 Iu)] Allergies Allergy/AdvReac Type Severity Reaction Status Date / Time acetaminophen [From Tylenol] Allergy Unknown Verified 01/13/21 10:47 Antihistamines - Alkylamine Allergy Anaphylaxis Verified 01/13/21 10:47 lorazepam [From Ativan] Allergy psychotic Verified 01/13/21 10:47 behavior shellfish derived Allergy Swelling Verified 01/13/21 10:47 Sulfa (Sulfonamide Allergy Unknown Verified 01/13/21 10:47 Antibiotics) alprazolam [From Xanax] AdvReac psychotic Verified 01/13/21 10:47 behavior codeine AdvReac Vomiting Verified 01/13/21 10:47 Corticosteroids AdvReac psychotic Verified 01/13/21 10:47 (Glucocorticoids) reaction Review of Systems ROS Statement: Those systems with pertinent positive or pertinent negative responses have been documented in the HPI. ROS Other: All systems not noted in ROS Statement are negative. Past Medical History Past Medical History: Asthma, COPD Additional Past Medical History / Comment(s): BRONCHITIS, ANEMIA, POST MENOPAUSAL, CURRENTLY POS OCCULT STOOL History of Any Multi-Drug Resistant Organisms: None Reported Past Surgical History: No Surgical Hx Reported Additional Past Surgical History / Comment(s): EGD 04-10-14 Past Anesthesia/Blood Transfusion Reactions: Motion Sickness Additional Past Anesthesia/Blood Transfusion Reaction / Comment(s): NEVER HAS HAD GENERAL ANESTHESIA Past Psychological History: Anxiety Smoking Status: Current every day smoker Past Alcohol Use History: None Reported Past Drug Use History: None Reported - Past Family History Sister(s) Family Medical History: Cancer Additional Family Medical History / Comment(s): [place] General Exam Limitations: no limitations General appearance: alert, in no apparent distress Head exam: Present: atraumatic, normocephalic Eye exam: Present: normal appearance, PERRL ENT exam: Present: mucous membranes dry Neck exam: Present: normal inspection. Absent: tenderness, meningismus Respiratory exam: Present: respiratory distress. Absent: wheezes, rales, rhonchi Cardiovascular Exam: Present: normal rhythm, tachycardia GI/Abdominal exam: Present: soft. Absent: distended, tenderness, guarding, rebound Extremities exam: Present: normal inspection, normal capillary refill. Absent: pedal edema Neurological exam: Present: alert, oriented X3, CN II-XII intact. Absent: motor sensory deficit Skin exam: Present: warm, dry, intact, pallor Course Vital Signs 01/13/21 01/13/21 01/13/21 09:49 10:00 10:29 Temperature 97.6 F Pulse Rate 144 H 123 H 95 Respiratory 20 18 20 Rate Blood Pressure 79/50 104/71 88/70 O2 Sat by Pulse 99 91 L 100 Oximetry EKG Findings - EKG Comments: EKG Findings:: EKG regular narrow complex rhythm, no atrial activity, accelerated junctional rhythm left anterior fascicular block, and rate of 122, QRS duration 86 QTC 461 similar QRS morphology to EKG in March 2020. EKG: Sinus rhythm with sinus arrhythmia, low voltage, RSR prime rate of 89, MT interval 192, QRS duration 102, QTC 452 Medical Decision Making - Medical Decision Making 75-year-old female presenting with palpitations, near syncope, lightheadedness. Initial EKG shows a narrow complex rhythm with no atrial activity, suspected accelerated junctional rhythm. Repeat EKG is sinus. Workup initiated, showing a normal CBC, normal CMP, negative troponin. Chest x-ray showing some increase in cardiac silhouette, some interstitial lung markings and pulmonary nodule. I did order an echo and plan to admit this patient for telemetry, echo, cardiology consultation especially in the setting of a rapid heart rate and marginal blood pressure. The patient declines. She is alert and oriented. She is accompanied by her daughter who is agreeable with her mother's decision. She will not stay in the hospital for any further testing. She wishes to be discharged. She sta nai she is feeling better and has no complaints. I did inform her of the risks and she is aware. She will attempt to obtain both a Holter monitor, and echo as an outpatient and will follow with her primary care physician. Additionally she is given cardiology follow-up. - Lab Data Result diagrams: 01/13/21 10:14 01/13/21 10:14 Lab Results 01/13/21 01/13/21 01/13/21 Range/Units 10:14 10:14 10:14 WBC 6.2 (3.8-10.6) k/uL RBC 4.44 (3.80-5.40) m/uL Hgb 12.9 (11.4-16.0) gm/dL Hct 39.2 (34.0-46.0) % MCV 88.3 (80.0-100.0) fL MCH 29.1 (25.0-35.0) pg MCHC 33.0 (31.0-37.0) g/dL RDW 15.3 (11.5-15.5) % Plt Count 462 H (150-450) k/uL MPV 6.6 Neutrophils % 71 % Lymphocytes % 19 % Monocytes % 5 % Eosinophils % 3 % Basophils % 1 % Neutrophils # 4.4 (1.3-7.7) k/uL Lymphocytes # 1.2 (1.0-4.8) k/uL Monocytes # 0.3 (0-1.0) k/uL Eosinophils # 0.2 (0-0.7) k/uL Basophils # 0.0 (0-0.2) k/uL PT 11.0 (9.0-12.0) sec INR 1.0 (<1.2) APTT 23.9 (22.0-30.0) sec Sodium (137-145) mmol/L Potassium (3.5-5.1) mmol/L Chloride (98-107) mmol/L Carbon Dioxide (22-30) mmol/L Anion Gap mmol/L BUN (7-17) mg/dL Creatinine (0.52-1.04) mg/dL Est GFR (CKD-EPI)AfAm (>60 ml/min/1.73 sqM) Est GFR (CKD-EPI)NonAf (>60 ml/min/1.73 sqM) Glucose (74-99) mg/dL Plasma Lactic Acid Blas (0.7-2.0) mmol/L Calcium (8.4-10.2) mg/dL Magnesium (1.6-2.3) mg/dL Total Bilirubin (0.2-1.3) mg/dL AST (14-36) U/L ALT (4-34) U/L Alkaline Phosphatase (38-126) U/L Troponin I (0.000-0.034) ng/mL NT-Pro-B Natriuret Pep pg/mL Total Protein (6.3-8.2) g/dL Albumin (3.5-5.0) g/dL Urine Color Yellow Urine Appearance Clear (Clear) Urine pH 6.5 (5.0-8.0) Ur Specific [place] 1.006 (1.001-1.035) Urine Protein Negative (Negative) Urine Glucose (UA) Negative (Negative) Urine Ketones Negative (Negative) Urine Blood Negative (Negative) Urine Nitrite Negative (Negative) Urine Bilirubin Negative (Negative) Urine Urobilinogen <2.0 (<2.0) mg/dL Ur Leukocyte Esterase Negative (Negative) 01/13/21 01/13/21 01/13/21 Range/Units 10:14 10:14 10:14 WBC (3.8-10.6) k/uL RBC (3.80-5.40) m/uL Hgb (11.4-16.0) gm/dL Hct (34.0-46.0) % MCV (80.0-100.0) fL MCH (25.0-35.0) pg MCHC (31.0-37.0) g/dL RDW (11.5-15.5) % Plt Count (150-450) k/uL MPV Neutrophils % % Lymphocytes % % Monocytes % % Eosinophils % % Basophils % % Neutrophils # (1.3-7.7) k/uL Lymphocytes # (1.0-4.8) k/uL Monocytes # (0-1.0) k/uL Eosinophils # (0-0.7) k/uL Basophils # (0-0.2) k/uL PT (9.0-12.0) sec INR (<1.2) APTT (22.0-30.0) sec Sodium 139 (137-145) mmol/L Potassium 4.5 (3.5-5.1) mmol/L Chloride 106 (98-107) mmol/L Carbon Dioxide 23 (22-30) mmol/L Anion Gap 10 mmol/L BUN 24 H (7-17) mg/dL Creatinine 0.78 (0.52-1.04) mg/dL Est GFR (CKD-EPI)AfAm 87 (>60 ml/min/1.73 sqM) Est GFR (CKD-EPI)NonAf 75 (>60 ml/min/1.73 sqM) Glucose 117 H (74-99) mg/dL Plasma Lactic Acid Blas 2.0 (0.7-2.0) mmol/L Calcium 10.3 H (8.4-10.2) mg/dL Magnesium 1.9 (1.6-2.3) mg/dL Total Bilirubin 0.4 (0.2-1.3) mg/dL AST 32 (14-36) U/L ALT 18 (4-34) U/L Alkaline Phosphatase 64 (38-126) U/L Troponin I <0.012 (0.000-0.034) ng/mL NT-Pro-B Natriuret Pep pg/mL Total Protein 6.8 (6.3-8.2) g/dL Albumin 3.9 (3.5-5.0) g/dL Urine Color Urine Appearance (Clear) Urine pH (5.0-8.0) Ur Specific [place] (1.001-1.035) Urine Protein (Negative) Urine Glucose (UA) (Negative) Urine Ketones (Negative) Urine Blood (Negative) Urine Nitrite (Negative) Urine Bilirubin (Negative) Urine Urobilinogen (<2.0) mg/dL Ur Leukocyte Esterase (Negative) 01/13/21 Range/Units 10:14 WBC (3.8-10.6) k/uL RBC (3.80-5.40) m/uL Hgb (11.4-16.0) gm/dL Hct (34.0-46.0) % MCV (80.0-100.0) fL MCH (25.0-35.0) pg MCHC (31.0-37.0) g/dL RDW (11.5-15.5) % Plt Count (150-450) k/uL MPV Neutrophils % % Lymphocytes % % Monocytes % % Eosinophils % % Basophils % % Neutrophils # (1.3-7.7) k/uL Lymphocytes # (1.0-4.8) k/uL Monocytes # (0-1.0) k/uL Eosinophils # (0-0.7) k/uL Basophils # (0-0.2) k/uL PT (9.0-12.0) sec INR (<1.2) APTT (22.0-30.0) sec Sodium (137-145) mmol/L Potassium (3.5-5.1) mmol/L Chloride (98-107) mmol/L Carbon Dioxide (22-30) mmol/L Anion Gap mmol/L BUN (7-17) mg/dL Creatinine (0.52-1.04) mg/dL Est GFR (CKD-EPI)AfAm (>60 ml/min/1.73 sqM) Est GFR (CKD-EPI)NonAf (>60 ml/min/1.73 sqM) Glucose (74-99) mg/dL Plasma Lactic Acid Blas (0.7-2.0) mmol/L Calcium (8.4-10.2) mg/dL Magnesium (1.6-2.3) mg/dL Total Bilirubin (0.2-1.3) mg/dL AST (14-36) U/L ALT (4-34) U/L Alkaline Phosphatase (38-126) U/L Troponin I (0.000-0.034) ng/mL NT-Pro-B Natriuret Pep 117 pg/mL Total Protein (6.3-8.2) g/dL Albumin (3.5-5.0) g/dL Urine Color Urine Appearance (Clear) Urine pH (5.0-8.0) Ur Specific [place] (1.001-1.035) Urine Protein (Negative) Urine Glucose (UA) (Negative) Urine Ketones (Negative) Urine Blood (Negative) Urine Nitrite (Negative) Urine Bilirubin (Negative) Urine Urobilinogen (<2.0) mg/dL Ur Leukocyte Esterase (Negative) Disposition Clinical Impression: Pulmonary nodule, Arrhythmia, Dyspnea Disposition: HOME SELF-CARE Condition: Fair Instructions (If sedation given, give patient instructions): Heart Palpitations (ED), Near Syncope (ED), Pulmonary Nodules (ED) Additional Instructions: Please follow up with his primary care physician, please attempt to obtain an echo as an outpatient as well as media monitor. Please return to the emergency department with worsening or changing symptoms. Is patient prescribed a controlled substance at d/c from ED?: No Referrals: Adam Blakely DO [Primary Care Provider] - 1-2 days Glenn Blanton MD [STAFF PHYSICIAN] - 1-2 days Time of Disposition: 11:44
[2021-01-13 10:30] VITALS: PULSE 95; RESP 20
[2021-01-13 10:32] LABS: Basophils % (A) 1 %; Eosinophils # (A) 0.2 k/uL (0-0.7); Eosinophils % (A) 3 %; HCT 39.2 % (34.0-46.0); HGB 12.9 gm/dL (11.4-16.0); Lymphocytes # (A) 1.2 k/uL (1.0-4.8); Lymphocytes % (A) 19 %; MCH 29.1 pg (25.0-35.0); MCV 88.3 fL (80.0-100.0); Mean Platelet Volume 6.6; Monocytes # (A) 0.3 k/uL (0-1.0); Monocytes % (A) 5 %; Neutrophils # (A) 4.4 k/uL (1.3-7.7); Neutrophils % (A) 71 %; Platelet Count 462 k/uL (150-450); RBC 4.44 m/uL (3.80-5.40); RDW 15.3 % (11.5-15.5); WBC 6.2 k/uL (3.8-10.6)
[2021-01-13 10:44] LABS: Appearance,Urine Clear (Clear); Bilirubin,Urine Negative (Negative); Blood,Urine Negative (Negative); Color,Urine Yellow; Glucose,Urine (UA) Negative (Negative); Ketones,Urine Negative (Negative); Leukocyte Esterase,Urine Negative (Negative); Nitrite,Urine Negative (Negative); PH, Urine 6.5 (5.0-8.0); Protein,Urine Negative (Negative); Specific Gravity,Urine 1.006 (1.001-1.035); Urobilinogen,Urine <2.0 mg/dL (<2.0)
--- NOTE | 2021-01-13 10:50 | XR ---
EXAMINATION TYPE: XR chest 2V DATE OF EXAM: 01/13/2021 COMPARISON: 09/02/2020 TECHNIQUE: PA and lateral views submitted. HISTORY: Weakness FINDINGS: Hyperinflation noted. Biapical pleural thickening. Heart size mildly prominent and there is ectasia o f the aorta. Diffuse interstitial pattern. There is a retrosternal density. Prominence the pulmonary arteries can be associated with pulmonary arterial hypertension. IMPRESSION: 1. COPD. Irregular retrosternal density in the lateral view. Underlying pulmonary nodule or mass not excluded recommend follow-up CT scan. 2. Increased interstitial relative to the prior exam correlate for interstitial pneumonitis, bronchit is. Venous congestion felt less likely.
[2021-01-13 10:56] LABS: Albumin 3.9 g/dL (3.5-5.0); Calcium 10.3 mg/dL (8.4-10.2); Magnesium 1.9 mg/dL (1.6-2.3); Potassium 4.5 mmol/L (3.5-5.1); Total Bilirubin 0.4 mg/dL (0.2-1.3); Total Protein 6.8 g/dL (6.3-8.2)
[2021-01-13 11:01] LABS: Partial Thromboplastin Time 23.9 sec (22.0-30.0)
[2021-01-13] MEDS ORDERED: SODIUM CHLORIDE 0.9% 1,000 ML IV SCH (11:30)
[2021-01-13 12:07] VITALS: BP 92/50
== END 2021-01-13 12:06 | disposition home or self-care (01) ==
LOC: EC 09:48
DX: I49.9 Cardiac arrhythmia, unspecified (principal); F17.200 Nicotine dependence, unspecified, uncomplicated; J44.9 Chronic obstructive pulmonary disease, unspecified; Z79.51 Long term (current) use of inhaled steroids; F41.9 Anxiety disorder, unspecified
CPT/HCPCS: 36415; 71046; 80053; 81003; 83605; 83735; 83880; 84484; 85025; 85610; 85730; 86850; 86900; 86901; 93005; 99284; 99285

== ENCOUNTER → 2024-02-11 | Outpatient (CLI) | payer MEDICARE ==
--- NOTE | 2024-02-11 17:55 | XR ---
EXAMINATION TYPE: XR chest 2V DATE OF EXAM: 02/11/2024 4:59 PM CLINICAL INDICATION:Female, 78 years old with history of R0602 SOB; [facility] COMPARISON: Chest radiographs from 01/13/2021. TECHNIQUE: XR chest 2V Frontal and lateral views of the chest. FINDINGS: Lungs/Pleura: There is no evidence of pleural effusion, focal consolidation, or pneumothorax. Pulmonary vascularity: Unremarkable. Heart/mediastinum: Cardiomediastinal silhouette is unremarkable. Musculoskeletal: No acute osseous pathology. IMPRESSION: 1. No acute cardiopulmonary disease process. 2. COPD changes.
== END | disposition home or self-care (01) ==
LOC: RADXRYALE 16:29
PROVIDERS: ATTEND Physician Assistant Medical
DX: J44.9 Chronic obstructive pulmonary disease, unspecified (principal)
CPT/HCPCS: 71046

== ENCOUNTER 2024-02-18 09:11 | Observation (INO) | payer MEDICARE ==
--- NOTE | 2024-02-18 09:49 | ED ---
SOB HPI - General Chief Complaint: Shortness of Breath Stated Complaint: SOB, Weakness Time Seen by Provider: 02/18/24 09:19 Source: patient, family Mode of arrival: ambulatory Limitations: no limitations - History of Present Illness Initial Comments: 78-year-old female presents emergency department reporting shortness of breath. States that she has had chronic worsening shortness of breath and lower extremity edema. She denies a history of congestive heart failure. No history of DVT or PE. She did see her primary care doctor in regards to this complaint and they started her on Lasix. States it has not been helping. She denies any fevers, chills or cough. Does have a history of COPD. She does have history of anemia and is supposed to take iron supplements. States that she has not taken iron in approximately a month because she is noncompliant. She denies having any black or bloody stools. No abdominal pain. No other alleviating, precipitating modifying factors - Related Data Home Medications Medication Instructions Recorded Confirmed Albuterol Nebulized [Ventolin 2.5 mg INHALATION RT-BID 04/09/14 02/18/24 Nebulized] Budesonide [Pulmicort] 0.5 mg INHALATION RT-BID 04/09/14 02/18/24 Albuterol Sulfate [Proair Hfa] 2 puff INHALATION RT-Q6H PRN 01/23/18 02/18/24 Allergies Allergy/AdvReac Type Severity Reaction Status Date / Time acetaminophen [From Tylenol] Allergy Unknown Verified 02/18/24 10:28 Antihistamines - Alkylamine Allergy Anaphylaxis Verified 02/18/24 10:28 guaifenesin Allergy Unknown Verified 02/18/24 10:28 lorazepam [From Ativan] Allergy psychotic Verified 02/18/24 10:28 behavior shellfish derived Allergy Swelling Verified 02/18/24 10:28 Sulfa (Sulfonamide Allergy Unknown Verified 02/18/24 10:28 Antibiotics) alprazolam [From Xanax] AdvReac psychotic Verified 02/18/24 10:28 behavior codeine AdvReac Vomiting Verified 02/18/24 10:28 Corticosteroids AdvReac psychotic Verified 02/18/24 10:28 (Glucocorticoids) reaction Review of Systems ROS Statement: Those systems with pertinent positive or pertinent negative responses have been documented in the HPI. ROS Other: All systems not noted in ROS Statement are negative. Past Medical History Past Medical History: Asthma, COPD Additional Past Medical History / Comment(s): BRONCHITIS, ANEMIA, POST M ENOPAUSAL, CURRENTLY POS OCCULT STOOL History of Any Multi-Drug Resistant Organisms: None Reported Past Surgical History: No Surgical Hx Reported Additional Past Surgical History / Comment(s): EGD 04-10-14 Past Anesthesia/Blood Transfusion Reactions: Motion Sickness Additional Past Anesthesia/Blood Transfusion Reaction / Comment(s): NEVER HAS HAD GENERAL ANESTHESIA Past Psychological History: Anxiety Smoking Status: Current every day smoker Past Alcohol Use History: None Reported Past Drug Use History: None Reported - Past Family History Sister(s) Family Medical History: Cancer Additional Family Medical History / Comment(s): COLON CA General Exam Limitations: no limitations General appearance: alert, in no apparent distress Head exam: Present: atraumatic, normocephalic, normal inspection Eye exam: Present: normal appearance, PERRL, EOMI. Absent: scleral icterus, conjunctival injection, periorbital swelling ENT exam: Present: normal exam, mucous membranes moist Neck exam: Present: normal inspection. Absent: tenderness, meningismus, lymphadenopathy Respiratory exam: Present: normal lung sounds bilaterally. Absent: respiratory distress, wheezes, rales, rhonchi, stridor Cardiovascular Exam: Present: regular rate, normal rhythm, normal heart sounds. Absent: systolic murmur, diastolic murmur, rubs, gallop, clicks GI/Abdominal exam: Present: soft, normal bowel sounds. Absent: distended, tenderness, guarding, rebound, rigid Rectal exam: Present: heme (+) stool, black stool. Absent: bloody stool Extremities exam: Present: normal inspection, full ROM, normal capillary refill. Absent: tenderness, pedal edema, joint swelling, calf tenderness Back exam: Present: normal inspection Neurological exam: Present: alert, oriented X3, CN II-XII intact Psychiatric exam: Present: normal affect, normal mood Skin exam: Present: warm, dry, intact, normal color. Absent: rash Course Vital Signs 02/18/24 02/18/24 02/18/24 09:13 09:57 10:16 Temperature 98.2 F Pulse Rate 98 80 87 Respiratory 20 20 20 Rate Blood Pressure 120/74 118/56 115/67 O2 Sat by Pulse 97 93 L 95 Oximetry 02/18/24 02/18/24 02/18/24 11:00 12:26 12:36 Temperature 97.9 F 98.0 F Pulse Rate 64 94 72 Respiratory 20 20 16 Rate Blood Pressure 119/78 129/94 O2 Sat by Pulse 95 96 96 Oximetry 02/18/24 02/18/24 02/18/24 12:56 13:42 14:00 Temperature 98.3 F 98.3 F 38.2 F L Pulse Rate 81 93 81 Respiratory 20 20 18 Rate Blood Pressure 132/79 132/79 132/79 O2 Sat by Pulse 95 94 L 94 L Oximetry 02/18/24 02/18/24 02/18/24 15:03 16:00 17:00 Temperature 98.3 F 98.5 F Pulse Rate 84 65 91 Respiratory 18 16 20 Rate Blood Pressure 132/79 140/68 129/79 O2 Sat by Pulse 95 98 94 L Oximetry 02/18/24 18:06 Temperature Pulse Rate 91 Respiratory 18 Rate Blood Pressure O2 Sat by Pulse Oximetry Medical Decision Making - Medical Decision Making Was pt. sent in by a medical professional or institution (, PA, STREET VENDOR, urgent care, hospital, or snf...) When possible be specific @ -No Did you speak to anyone other than the patient for history (EMS, parent, family, police, friend...)? What history was obtained from this source @ -Spoke with the patient's daughter for history Did you review nursing and triage notes (agree or disagree)? Why? @ -I reviewed and agree with nursing and triage notes Were old charts reviewed (outside hosp., previous admission, EMS record, old EKG, old radiological studies, urgent care reports/EKG's, snf records)? Report findings @ -I reviewed the patient's chart in regards to her last hospitalization for GI bleed. Patient was hospitalized in 2013 with this complaint Differential Diagnosis (chest pain, altered mental status, abdominal pain women, abdominal pain men, vaginal bleeding, weakness, fever, dyspnea, syncope, headache, dizziness, GI bleed, back pain, seizure, CVA, palpatations, mental health, musculoskeletal)? @ -Differential GI Bleed: Esophageal varices, aortoenteric fistula, Virginia-Alvarez, gastritis, peptic ulcer disease, diverticulosis, inflammatory bowel disease, hemorrhoids, fissure, colitis, malignancy, Meckels diverticulum, this is not meant to be an all- inclusive list. EKG interpreted by me (3pts min.). @ -Yes and demonstrates sinus rhythm with a rate of 86. IL interval 185. QRS 101. QTc of 394. No acute ST segment elevations or depressions X-rays interpreted by me (1pt min.). @ -Yes and demonstrates no acute process. COPD changes CT interpreted by me (1pt min.). @ -None done U/S interpreted by me (1pt. min.). @ -Yes and demonstrates no DVT What testing was considered but not performed or refused? (CT, X-rays, U/S, labs)? Why? @ -None What meds were considered but not given or refused? Why? @ -None Did you discuss the management of the patient with other professionals (professionals i.e. , PA, STREET VENDOR, lab, RT, psych nurse, social security assessor, pottery machine operator, teacher, custom protection officer, case management rn)? Give summary @ -Spoke with [employer] Was smoking cessation discussed for >3mins.? @ -No Was critical care preformed (if so, how long)? @ -Yes, 35 minutes for blood transfusion Were there social determinants of health that impacted care today? How? (Homelessness, low income, unemployed, alcoholism, drug addiction, transportation, low edu. Level, literacy, decrease access to med. care, [facility], rehab)? @ -No Was there de-escalation of care discussed even if they declined (Discuss DNR or withdrawal of care, Hospice)? DNR status @ -No What co-morbidities impacted this encounter? (DM, HTN, Smoking, COPD, CAD, Cancer, CVA, ARF, Chemo, Hep., AIDS, mental health diagnosis, sleep apnea, morbid obesity)? @ -COPD Was patient admitted / discharged? Hospital course, mention meds given and route, prescriptions, significant lab abnormalities, going to OR and other pertinent info. @ -Upon arrival patient was seen and evaluated in room 27. Thorough history and physical exam was performed. IV access was established. Laboratory studies are conducted. Chest x-ray was performed. Patient does have a low hemoglobin. This is discussed with the patient. Patient was agreeable to a unit of blood. She will be given IV Lasix after the blood transfusion. Occult was positive and therefore Dr. Lehman will be placed on consult. Patient agreeable to this plan and was awaiting a bed on the floor in stable condition Undiagnosed new problem with uncertain prognosis? @ -No Drug Therapy requiring intensive monitoring for toxicity (Heparin, Nitro, Insulin, Cardizem)? @ -Packed red blood cells Were any procedures done? @ -No Diagnosis/symptom? @ -Acute respiratory insufficiency, acute bilateral lower extremity edema, acute anemia, occult positive Acute, or Chronic, or Acute on Chronic? @ -Acute Uncomplicated (without systemic symptoms) or Complicated (systemic symptoms)? @ -Complicated Side effects of treatment? @ -No Exacerbation, Progression, or Severe Exacerbation? @ -No Poses a threat to life or bodily function? How? (Chest pain, USA, CT, pneumonia, PE, COPD, DKA, ARF, appy, cholecystitis, CVA, Diverticulitis, Homicidal, Suicidal, threat to staff... and all critical care pts) @ -Yes as patient is requiring blood transfusion at this time - Lab Data Result diagrams: 02/18/24 16:30 02/18/24 09:22 Lab Results 02/18/24 02/18/24 02/18/24 Range/Units 09:22 09:22 09:22 WBC 5.7 (3.8-10.6) k/uL RBC 2.88 L (3.80-5.40) m/uL Hgb 6.6 L* (11.4-16.0) gm/dL Hct 23.0 L (34.0-46.0) % MCV 79.8 L (80.0-100.0) fL MCH 22.8 L (25.0-35.0) pg MCHC 28.6 L (31.0-37.0) g/dL RDW 15.4 (11.5-15.5) % Plt Count 576 H (150-450) k/uL MPV 7.6 Neutrophils % 79 % Lymphocytes % 8 % Monocytes % 4 % Eosinophils % 8 % Basophils % 0 % Neutrophils # 4.5 (1.3-7.7) k/uL Lymphocytes # 0.5 L (1.0-4.8) k/uL Monocytes # 0.2 (0-1.0) k/uL Eosinophils # 0.4 (0-0.7) k/uL Basophils # 0.0 (0-0.2) k/uL Hypochromasia Marked Poikilocytosis Moderate PT 10.8 (10.0-12.5) sec INR 1.0 (<1.2) APTT 22.3 (22.0-30.0) sec D-Dimer (<0.60) mg/L FEU Sodium 144 (137-145) mmol/L Potassium 5.2 H (3.5-5.1) mmol/L Chloride 112 H (98-107) mmol/L Carbon Dioxide 28 (22-30) mmol/L Anion Gap 4 mmol/L BUN 22 H (7-17) mg/dL Creatinine 0.74 (0.52-1.04) mg/dL Est GFR (CKD-EPI)AfAm >90 (>60 ml/min/1.73 sqM) Est GFR (CKD-EPI)NonAf 79 (>60 ml/min/1.73 sqM) Glucose 104 H (74-99) mg/dL Plasma Lactic Acid Blas (0.7-2.0) mmol/L Calcium 9.4 (8.4-10.2) mg/dL Magnesium 2.1 (1.6-2.3) mg/dL Iron (50-170) UG/DL TIBC (228-460) UG/DL % Saturation (12.00-45.00) Transferrin (204.0-354.0) mg/dL Total Bilirubin 0.3 (0.2-1.3) mg/dL AST 26 (14-36) U/L ALT 15 (4-34) U/L Alkaline Phosphatase 73 (38-126) U/L Troponin I (0.000-0.034) ng/mL NT-Pro-B Natriuret Pep 569 pg/mL Total Protein 6.4 (6.3-8.2) g/dL Albumin 3.5 (3.5-5.0) g/dL Blood Type Blood Type Recheck Bld Type Recheck Status Antibody Screen Crossmatch Spec Expiration Date 02/18/24 02/18/24 02/18/24 Range/Units 09:22 09:22 09:22 WBC (3.8-10.6) k/uL RBC (3.80-5.40) m/uL Hgb (11.4-16.0) gm/dL Hct (34.0-46.0) % MCV (80.0-100.0) fL MCH (25.0-35.0) pg MCHC (31.0-37.0) g/dL RDW (11.5-15.5) % Plt Count (150-450) k/uL MPV Neutrophils % % Lymphocytes % % Monocytes % % Eosinophils % % Basophils % % Neutrophils # (1.3-7.7) k/uL Lymphocytes # (1.0-4.8) k/uL Monocytes # (0-1.0) k/uL Eosinophils # (0-0.7) k/uL Basophils # (0-0.2) k/uL Hypochromasia Poikilocytosis PT (10.0-12.5) sec INR (<1.2) APTT (22.0-30.0) sec D-Dimer 0.70 H (<0.60) mg/L FEU Sodium (137-145) mmol/L Potassium (3.5-5.1) mmol/L Chloride (98-107) mmol/L Carbon Dioxide (22-30) mmol/L Anion Gap mmol/L BUN (7-17) mg/dL Creatinine (0.52-1.04) mg/dL Est GFR (CKD-EPI)AfAm (>60 ml/min/1.73 sqM) Est GFR (CKD-EPI)NonAf (>60 ml/min/1.73 sqM) Glucose (74-99) mg/dL Plasma Lactic Acid Blas 1.9 (0.7-2.0) mmol/L Calcium (8.4-10.2) mg/dL Magnesium (1.6-2.3) mg/dL Iron (50-170) UG/DL TIBC (228-460) UG/DL % Saturation (12.00-45.00) Transferrin (204.0-354.0) mg/dL Total Bilirubin (0.2-1.3) mg/dL AST (14-36) U/L ALT (4-34) U/L Alkaline Phosphatase (38-126) U/L Troponin I <0.012 (0.000-0.034) ng/mL NT-Pro-B Natriuret Pep pg/mL Total Protein (6.3-8.2) g/dL Albumin (3.5-5.0) g/dL Blood Type Blood Type Recheck Bld Type Recheck Status Antibody Screen Crossmatch Spec Expiration Date 02/18/24 02/18/24 Range/Units 10:35 10:35 WBC (3.8-10.6) k/uL RBC (3.80-5.40) m/uL Hgb (11.4-16.0) gm/dL Hct (34.0-46.0) % MCV (80.0-100.0) fL MCH (25.0-35.0) pg MCHC (31.0-37.0) g/dL RDW (11.5-15.5) % Plt Count (150-450) k/uL MPV Neutrophils % % Lymphocytes % % Monocytes % % Eosinophils % % Basophils % % Neutrophils # (1.3-7.7) k/uL Lymphocytes # (1.0-4.8) k/uL Monocytes # (0-1.0) k/uL Eosinophils # (0-0.7) k/uL Basophils # (0-0.2) k/uL Hypochromasia Poikilocytosis PT (10.0-12.5) sec INR (<1.2) APTT (22.0-30.0) sec D-Dimer (<0.60) mg/L FEU Sodium (137-145) mmol/L Potassium (3.5-5.1) mmol/L Chloride (98-107) mmol/L Carbon Dioxide (22-30) mmol/L Anion Gap mmol/L BUN (7-17) mg/dL Creatinine (0.52-1.04) mg/dL Est GFR (CKD-EPI)AfAm (>60 ml/min/1.73 sqM) Est GFR (CKD-EPI)NonAf (>60 ml/min/1.73 sqM) Glucose (74-99) mg/dL Plasma Lactic Acid Blas (0.7-2.0) mmol/L Calcium (8.4-10.2) mg/dL Magnesium (1.6-2.3) mg/dL Iron 8 L (50-170) UG/DL TIBC 491 H (228-460) UG/DL % Saturation 1.63 L (12.00-45.00) Transferrin 351.0 (204.0-354.0) mg/dL Total Bilirubin (0.2-1.3) mg/dL AST (14-36) U/L ALT (4-34) U/L Alkaline Phosphatase (38-126) U/L Troponin I (0.000-0.034) ng/mL NT-Pro-B Natriuret Pep pg/mL Total Protein (6.3-8.2) g/dL Albumin (3.5-5.0) g/dL Blood Type AB Positive Blood Type Recheck AB Pos Bld Type Recheck Status No Antibody Screen NEGATIVE Crossmatch See Detail Spec Expiration Date 02/21/20242334 Disposition Clinical Impression: Anemia, Iron deficiency, Shortness of breath, Leg edema Disposition[facility] Condition: Stable Is patient prescribed a controlled substance at d/c from ED?: No Time of Disposition: 13:05 Decision to Admit Reason: Admit from EC Decision Date: 02/18/24 Decision Time: 13:05
[2024-02-18 10:01] LABS: Basophils % (A) 0 %; Eosinophils # (A) 0.4 k/uL (0-0.7); Eosinophils % (A) 8 %; Hypochromasia Marked; Lymphocytes # (A) 0.5 k/uL (1.0-4.8); Lymphocytes % (A) 8 %; MCH 22.8 pg (25.0-35.0); MCHC 28.6 g/dL (31.0-37.0); MCV 79.8 fL (80.0-100.0); Mean Platelet Volume 7.6; Monocytes # (A) 0.2 k/uL (0-1.0); Monocytes % (A) 4 %; Neutrophils # (A) 4.5 k/uL (1.3-7.7); Neutrophils % (A) 79 %; Platelet Count 576 k/uL (150-450); Poikilocytosis Moderate; RBC 2.88 m/uL (3.80-5.40); RDW 15.4 % (11.5-15.5); WBC 5.7 k/uL (3.8-10.6)
--- NOTE | 2024-02-18 10:09 | XR ---
EXAMINATION TYPE: XR chest 2V DATE OF EXAM: 02/18/2024 10:04 AM CLINICAL INDICATION:Female, 78 years old with history of difficulty breathing; [facility] COMPARISON: Chest radiographs from 02/11/2024 TECHNIQUE: XR chest 2V Frontal and lateral views of the chest. FINDINGS: Lungs/Pleura: There is flattening of the diaphragm with increased lucency of the lungs. No evidence o f pneumothorax, pleural effusion or focal consolidation. Pulmonary vascularity: Unremarkable. Heart/mediastinum: Cardiomediastinal silhouette is unremarkable. Musculoskeletal: No acute osseous pathology. IMPRESSION: 1. No acute cardiopulmonary disease process. 2. COPD changes.
[2024-02-18 10:19] LABS: Prothrombin Time 10.8 sec (10.0-12.5)
[2024-02-18 10:20] LABS: Partial Thromboplastin Time 22.3 sec (22.0-30.0)
[2024-02-18 10:21] LABS: HGB 6.6 gm/dL (11.4-16.0)
[2024-02-18 10:43] LABS: ALT 15 U/L (4-34); AST 26 U/L (14-36); African American GFR (CKD) >90 (>60 ml/min/1.73 sqM); Albumin 3.5 g/dL (3.5-5.0); Alkaline Phosphatase 73 U/L (38-126); Anion Gap 4 mmol/L; Blood Urea Nitrogen 22 mg/dL (7-17); Calcium 9.4 mg/dL (8.4-10.2); Carbon Dioxide 28 mmol/L (22-30); Chloride 112 mmol/L (98-107); Glucose 104 mg/dL (74-99); Magnesium 2.1 mg/dL (1.6-2.3); Non-African American GFR(CKD) 79 (>60 ml/min/1.73 sqM); Potassium 5.2 mmol/L (3.5-5.1); Sodium 144 mmol/L (137-145); Total Bilirubin 0.3 mg/dL (0.2-1.3); Total Protein 6.4 g/dL (6.3-8.2)
[2024-02-18 10:49] LABS: NT-Pro-B-Type Natriuretic Pept 569 pg/mL
[2024-02-18] MEDS ORDERED: NALOXONE 0.4 MG/ML 1 ML VIAL IV PRN (13:06)
--- NOTE | 2024-02-18 13:12 | US ---
EXAMINATION TYPE: US venous doppler duplex LE LT DATE OF EXAM: 02/18/2024 12:47 PM COMPARISON: NONE CLINICAL INDICATION: Female, 78 years old with history of swelling; Edema left leg SIDE PERFORMED: left TECHNIQUE: The lower extremity deep venous system is examined utilizing real time linear array sonog cassandra with graded compression, doppler sonography and color-flow sonography. VESSELS IMAGED: Common Femoral Vein Deep Femoral Vein Greater Saphenous Vein * Femoral Vein Popliteal Vein Small Saphenous Vein * Proximal Calf Veins (* superficial vessels) Left Leg: No evidence of DVT IMPRESSION: Grayscale, color doppler, spectral doppler imaging performed of the deep veins of the lo wer extremities. There is normal flow, compressibility, vascular waveforms.
--- NOTE | 2024-02-18 14:51 | P.HPIM ---
History of Present Illness H&P Date: 02/18/24 78 year old F with PMH of iron deficiency anemia, anxiety, PPD smoker and COPD presents to the ED. Reports exertional shortness of breath that has been ongoing for the past couple months but getting worse over the past week. She also reports lower extremity swelling as well. Saw her PCP, underwent CXR and EKG which was unrevealing, prescribed Lasix and antibiotics which did not help. She also reports pressure like pain is her epigastric area. No associated nausea or vomiting. No changes in urination or bowel habits. No melena or hematochezia. She was hospitalized back in 2013 for similar symptoms, found to have Hg of 6.6, received 2 PRBC, underwent EGD which showed hiatal hernia and mild duodenitis. States she had a C-scope in the outpatient setting which was also unrevealing. She reports taking upwards of 6 325 mg aspirins weekly for pain. She has been taking iron supplements since then which she stopped 2 weeks ago. In the ED she underwent extensive evaluation. BP 119/78, HR 94, RR 20, T97.9F, 96% on RA. CBC, Coag panel and CMP done which showed WBC 2.88, Hg 6.6, Hct 23, MCV 79.8, Plt 576, K 5.2, Cl 112, BUN 22, glu 104. Lactic aci 1.9. Mag 2.1. Trop < 0.012. BNP 569. CXR negative for acute changes. EKG sinus rhythm with incomplete RBBB, ST depression. Venous doppler negative for LLE DVT. Patient is admitted for further workup and management. General: non toxic, no distress, appears at stated age Derm: warm, dry Head: atraumatic, normocephalic, symmetric Eyes: EOMI, no lid lag, anicteric sclera Mouth: no lip lesion, mucus membranes moist Cardiovascular: S1S2 reg, no murmur, positive posterior tibial pulse bilateral, Lungs: Decreased BS bilateral, no rhonchi, no rales , no accessory muscle use Abdominal: soft, nontender to palpation, no guarding, no appreciable orga nomegaly Ext: no gross muscle atrophy, trace pedal edema, no contractures Neuro: no focal neuro deficits Psych: Alert, oriented, appropriate affect Based on my assessment of this patient, this patient meets a high complexity level of care. Patient has an acute diagnosis of symptomatic anemia that poses a threat to life or bodily function. Symptomatic anemia: Microcytic. 1 PRBC ordered. Obtain Iron studies, B12, Folate. Telemetry monitoring. Stool occult blood pending. Recommended age approp riate routine cancer screenings including low dose CT scan of the chest given heavy smoking history. Given epigastric pain and use of aspirin, we will consult GI. Epigastric pain: History of duodenitis. History of ASA use. Allergic to many medications. Trend Troponin to rule out ACS. Lower extremity swelling: Obtain Echocardiogram. Thrombocytosis: Likely related to iron def. anemia. Hyperkalemia: Mildly elevated. No peaked T waves on EKG. Trend. Smoker: Offered nicotine patch. History of COPD: Albuterol neb PRN for SOB/wheezing. Pulmicort 0.5 INH BID. CODE STATUS: NO CODE but OK with intubation DVT Prophylaxis: SCD GI Prophylaxis: Designated medical POA if patient is not able to make medical decisions for themselves: Daughter I have reviewed the following automotive internet sales consultant notes: ED note I have reviewed the results of the following tests: As above. I have ordered the following tests: As above. I have discussed the care of this patient with the following independent historian: I have independently interpreted the following test below: EKG I have discussed the management of this patient with the following physician: Past Medical History Past Medical History: Asthma, COPD Additional Past Medical History / Comment(s): BRONCHITIS, ANEMIA, POST MENOPAUSAL, CURRENTLY POS OCCULT STOOL History of Any Multi-Drug Resistant Organisms: None Reported Past Surgical History: No Surgical Hx Reported Additional Past Surgical History / Comment(s): EGD 04-10-14 Past Anesthesia/Blood Transfusion Reactions: Motion Sickness Additional Past Anesthesia/Blood Transfusion Reaction / Comment(s): NEVER HAS HAD GENERAL ANESTHESIA Past Psychological History: Anxiety Smoking Status: Current every day smoker Past Alcohol Use History: None Reported Past Drug Use History: None Reported - Past Family History Sister(s) Family Medical History: Cancer Additional Family Medical History / Comment(s): COLON CA Medications and Allergies Home Medications Medication Instructions Recorded Confirmed Type Albuterol Nebulized [Ventolin 2.5 mg INHALATION RT-BID 04/09/14 02/18/24 History Nebulized] Budesonide [Pulmicort] 0.5 mg INHALATION RT-BID 04/09/14 02/18/24 History Albuterol Sulfate [Proair Hfa] 2 puff INHALATION RT-Q6H PRN 01/23/18 02/18/24 History Allergies Allergy/AdvReac Type Severity Reaction Status Date / Time acetaminophen [From Tylenol] Allergy Unknown Verified 02/18/24 10:28 Antihistamines - Alkylamine Allergy Anaphylaxis Verified 02/18/24 10:28 guaifenesin Allergy Unknown Verified 02/18/24 10:28 lorazepam [From Ativan] Allergy psychotic Verified 02/18/24 10:28 behavior shellfish derived Allergy Swelling Verified 02/18/24 10:28 Sulfa (Sulfonamide Allergy Unknown Verified 02/18/24 10:28 Antibiotics) alprazolam [From Xanax] AdvReac psychotic Verified 02/18/24 10:28 behavior codeine AdvReac Vomiting Verified 02/18/24 10:28 Corticosteroids AdvReac psychotic Verified 02/18/24 10:28 (Glucocorticoids) reaction Physical Exam Vitals: Vital Signs Temp Pulse Resp BP Pulse Ox 02/18/24 13:42 98.3 F 93 20 132/79 94 L 02/18/24 12:56 98.3 F 81 20 132/79 95 02/18/24 12:36 98.0 F 72 16 129/94 96 02/18/24 12:26 97.9 F 94 20 119/78 96 02/18/24 11:00 64 20 95 02/18/24 10:16 87 20 115/67 95 02/18/24 09:57 80 20 118/56 93 L 02/18/24 09:13 98.2 F 98 20 120/74 97 Intake and Output 02/17/24 02/18/24 02/18/24 22:59 06:59 14:59 Intake Total 0 Balance 0 Intake: Blood Product 0 Unit 0 Other: Weight 41.73 kg Results CBC & Chem 7: 02/18/24 09:22 02/18/24 09:22 Labs: Abnormal Lab Results - Last 24 Hours (Table) 02/18/24 02/18/24 02/18/24 Range/Units 09:22 09:22 09:22 RBC 2.88 L (3.80-5.40) m/uL Hgb 6.6 L* (11.4-16.0) gm/dL Hct 23.0 L (34.0-46.0) % MCV 79.8 L (80.0-100.0) fL MCH 22.8 L (25.0-35.0) pg MCHC 28.6 L (31.0-37.0) g/dL Plt Count 576 H (150-450) k/uL Lymphocytes # 0.5 L (1.0-4.8) k/uL D-Dimer 0.70 H (<0.60) mg/L FEU Potassium 5.2 H (3.5-5.1) mmol/L Chloride 112 H (98-107) mmol/L BUN 22 H (7-17) mg/dL Glucose 104 H (74-99) mg/dL Stool Occult Blood (Negative) Crossmatch 02/18/24 02/18/24 Range/Units 10:35 14:27 RBC (3.80-5.40) m/uL Hgb (11.4-16.0) gm/dL Hct (34.0-46.0) % MCV (80.0-100.0) fL MCH (25.0-35.0) pg MCHC (31.0-37.0) g/dL Plt Count (150-450) k/uL Lymphocytes # (1.0-4.8) k/uL D-Dimer (<0.60) mg/L FEU Potassium (3.5-5.1) mmol/L Chloride (98-107) mmol/L BUN (7-17) mg/dL Glucose (74-99) mg/dL Stool Occult Blood Positive H (Negative) Crossmatch See Detail
[2024-02-18 16:03] LABS: % Iron Saturation 1.63 (12.00-45.00)
[2024-02-18 16:52] LABS: Basophils % (A) 1 %; Eosinophils # (A) 0.3 k/uL (0-0.7); Eosinophils % (A) 5 %; HGB 7.8 gm/dL (11.4-16.0); Hypochromasia Marked; Lymphocytes # (A) 0.8 k/uL (1.0-4.8); Lymphocytes % (A) 15 %; MCH 23.4 pg (25.0-35.0); MCHC 28.8 g/dL (31.0-37.0); MCV 81.3 fL (80.0-100.0); Mean Platelet Volume 7.2; Monocytes # (A) 0.3 k/uL (0-1.0); Monocytes % (A) 6 %; Neutrophils # (A) 3.6 k/uL (1.3-7.7); Neutrophils % (A) 71 %; Platelet Count 506 k/uL (150-450); Poikilocytosis Marked; RBC 3.32 m/uL (3.80-5.40); RDW 15.1 % (11.5-15.5); WBC 5.1 k/uL (3.8-10.6)
[2024-02-18] MEDS: ALBUTEROL NEBULIZED 2.5 MG/3 ML INHALATION PRN (19:56)
[2024-02-18] MEDS: BUDESONIDE 0.5 MG/2 ML NEBU INHALATION SCH (19:56)
[2024-02-18 22:32] LABS: Ferritin 6.6 ng/mL (10.0-291.0)
[2024-02-19 07:17] VITALS: BP 130/75; TEMP 97.7
[2024-02-19 07:59] VITALS: RESP 18
[2024-02-19 10:10] VITALS: PULSE 92
[2024-02-19] MEDS: SODIUM FERRIC GLUCONAT-SUCROSE 125 MG in SODIUM CHLORIDE 0.9% 100 ML IVPB SCH (10:45)
[2024-02-19 12:40] LABS: Basophils # (A) 0.03 X 10*3/uL (0.00-0.10); Basophils % (A) 0.5 %; Eosinophils # (A) 0.48 X 10*3/uL (0.04-0.35); Eosinophils % (A) 7.5 %; HCT 25.7 % (37.2-46.3); HGB 7.6 g/dL (12.0-15.0); Lymphocytes # (A) 0.92 X 10*3/uL (0.90-5.00); Lymphocytes % (A) 14.5 %; MCH 23.5 pg (27.0-32.0); MCHC 29.6 g/dL (32.0-37.0); MCV 79.3 FL (80.0-97.0); Mean Platelet Volume 9.5 FL (9.5-12.2); Monocytes # (A) 0.45 X 10*3/uL (0.20-1.00); Monocytes % (A) 7.1 %; NRBC Per 100 WBC 0 X 10*3/uL (0.00-0.01); Neutrophils # (A) 4.47 X 10*3/uL (1.80-7.70); Neutrophils % (A) 70.2 %; Platelet Count 500 X 10*3/uL (140-440); RBC 3.24 X 10*6/uL (4.10-5.20); RDW 15.9 % (11.5-14.5); WBC 6.36 X 10*3/uL (4.50-10.00)
--- NOTE | 2024-02-19 13:17 | P.CONS ---
History of Present Illness - Reason for Consult Consult date: 02/19/24 Anemia, history of duodenitis Requesting physician: Devonte Hernandez - Chief Complaint Weakness, shortness of breath - History of Present Illness This is a pleasant 78-year-old female who was sent into the emergency department with complaints of shortness of breath and weakness. Patient has a past medical history including asthma, COPD and anemia. She underwent evaluation with an upper endoscopy and colonoscopy in 2013. Upper endoscopy done by Dr. Thomson on 04/10/2014 reported only mild duodenitis no active bleeding. Patient states she then had a colonoscopy as an outpatient and was told that it was normal. Patient states that she has been having ongoing shortness of breath and weakness however has been getting worse since last Sunday. She presented to the [facility] and was found to have microcytic anemia. She had a hemoglobin of 6.6. She was transfused with 1 unit of blood with a repeat hemoglobin of 7.8. She was noted to have iron deficiency anemia as well. BUN elevated at 22. Patient denies any black stool, no blood per her rectum. She denies any abdominal pain nausea or vomiting. She does state that she takes aspirin 325 mg 1 to 4 tablets at least twice a week for pain. She denies any anticoagulation, no epigastric pain or acid reflux. Review of Systems REVIEW OF SYSTEMS: CARDIOPULMONARY: No chest pain. Patient reports shortness of breath especially with exertion. Gastrointestinal: No epigastric or abdominal pain. No reports of acid reflux. No nausea or vomiting. No hematemesis, coffee-ground emesis. No rectal bleeding, or melena. GENITOURINARY: No dysuria or hematuria. MUSCULOSKELETAL: Reports normal range of motion., Joint pain. SKIN: No rashes. No jaundice. ENDOCRINE: No chills, fevers. No excessive weight gain or loss. No polydipsia or polyuria. PSYCHIATRIC: Unremarkable. NEUROLOGY: No change in mental status. Denies dizziness, headache. ENT: Vision unremarkable. CONSTITUTIONAL: No recent weight loss. No fever, chills, night sweats. Increased weakness. Past Medical History Past Medical History: Asthma, COPD Additional Past Medical History / Comment(s): BRONCHITIS, ANEMIA, POST MENOPAUSAL, CURRENTLY POS OCCULT STOOL History of Any Multi-Drug Resistant Organisms: None Reported Past Surgical History: No Surgical Hx Reported Additional Past Surgical History / Comment(s): EGD 6-6-14 Past Anesthesia/Blood Transfusion Reactions: Motion Sickness Additional Past Anesthesia/Blood Transfusion Reaction / Comm: NEVER HAS HAD GENERAL ANESTHESIA Past Psychological History: Anxiety Smoking Status: Current every day smoker Past Alcohol Use History: None Reported Past Drug Use History: None Reported - Past Family History Sister(s) Family Medical History: Cancer Additional Family Medical History / Comment(s): COLON CA Medications and Allergies Home Medications Medication Instructions Recorded Confirmed Type Albuterol Nebulized [Ventolin 2.5 mg INHALATION RT-BID 04/09/14 02/18/24 History Nebulized] Budesonide [Pulmicort] 0.5 mg INHALATION RT-BID 04/09/14 02/18/24 History Albuterol Sulfate [Proair Hfa] 2 puff INHALATION RT-Q6H PRN 01/23/18 02/18/24 History Allergies Allergy/AdvReac Type Severity Reaction Status Date / Time acetaminophen [From Tylenol] Allergy Unknown Verified 02/18/24 10:28 Antihistamines - Alkylamine Allergy Anaphylaxis Verified 02/18/24 10:28 guaifenesin Allergy Unknown Verified 02/18/24 10:28 lorazepam [From Ativan] Allergy psychotic Verified 02/18/24 10:28 behavior shellfish derived Allergy Swelling Verified 02/18/24 10:28 Sulfa (Sulfonamide Allergy Unknown Verified 02/18/24 10:28 Antibiotics) alprazolam [From Xanax] AdvReac psychotic Verified 02/18/24 10:28 behavior codeine AdvReac Vomiting Verified 02/18/24 10:28 Corticosteroids AdvReac psychotic Verified 02/18/24 10:28 (Glucocorticoids) reaction Physical Exam Vitals: Vital Signs Temp Pulse Pulse Resp BP BP Pulse Ox 02/19/24 07:00 97.7 F 84 84 18 130/75 130/75 96 02/19/24 02:26 97.8 F 71 15 124/66 96 02/18/24 20:04 77 02/18/24 20:00 15 02/18/24 19:57 74 02/18/24 18:45 97.9 F 74 15 123/72 95 02/18/24 18:06 91 18 02/18/24 17:00 98.5 F 91 20 129/79 94 L 02/18/24 16:00 65 16 140/68 98 02/18/24 15:03 98.3 F 84 18 132/79 95 02/18/24 14:00 38.2 F L 81 18 132/79 94 L 02/18/24 13:42 98.3 F 93 20 132/79 94 L 02/18/24 12:56 98.3 F 81 20 132/79 95 02/18/24 12:36 98.0 F 72 16 129/94 96 02/18/24 12:26 97.9 F 94 20 119/78 96 02/18/24 11:00 64 20 95 02/18/24 10:16 87 20 115/67 95 02/18/24 09:57 80 20 118/56 93 L 02/18/24 09:13 98.2 F 98 20 120/74 97 Intake and Output 02/18/24 02/19/24 02/19/24 22:59 06:59 14:59 Intake Total 100 Balance 100 Intake: Blood Product 0 Rc As-1 Unit 0 [id number] Other 100 Rc As-1 Unit 100 [id number] Other: # Voids 1 1 General appearance: The patient is alert, oriented, appears in no acute distress. HET: Head is normocephalic and atraumatic. Conjunctiva pink. Sclera anicteric. Neck: Supple without lymphadenopathy. Trachea midline. Heart: Regular. Lungs: Equal expansion, normal respiratory effort. Abdomen: Soft, nontender, nondistended with bowel sounds. No guarding or rig idity. Skin: No rashes. No jaundice. Extremities: Normal skin color and turgor. No pedal edema. Neurological: No focal deficits. Alert and oriented x3. Results CBC & Chem 7: 02/19/24 07:29 02/18/24 09:22 Labs: Abnormal Lab Results - Last 24 Hours (Table) 02/18/24 02/18/24 02/18/24 Range/Units 09:22 09:22 09:22 RBC 2.88 L (3.80-5.40) m/uL Hgb 6.6 L* (11.4-16.0) gm/dL Hct 23.0 L (34.0-46.0) % MCV 79.8 L (80.0-100.0) fL MCH 22.8 L (25.0-35.0) pg MCHC 28.6 L (31.0-37.0) g/dL Plt Count 576 H (150-450) k/uL Lymphocytes # 0.5 L (1.0-4.8) k/uL D-Dimer 0.70 H (<0.60) mg/L FEU Potassium 5.2 H (3.5-5.1) mmol/L Chloride 112 H (98-107) mmol/L BUN 22 H (7-17) mg/dL Glucose 104 H (74-99) mg/dL Iron (50-170) UG/DL TIBC (228-460) UG/DL % Saturation (12.00-45.00) Ferritin (10.0-291.0) ng/mL Stool Occult Blood (Negative) Crossmatch 02/18/24 02/18/24 02/18/24 Range/Units 10:35 10:35 14:27 RBC (3.80-5.40) m/uL Hgb (11.4-16.0) gm/dL Hct (34.0-46.0) % MCV (80.0-100.0) fL MCH (25.0-35.0) pg MCHC (31.0-37.0) g/dL Plt Count (150-450) k/uL Lymphocytes # (1.0-4.8) k/uL D-Dimer (<0.60) mg/L FEU Potassium (3.5-5.1) mmol/L Chloride (98-107) mmol/L BUN (7-17) mg/dL Glucose (74-99) mg/dL Iron 8 L (50-170) UG/DL TIBC 491 H (228-460) UG/DL % Saturation 1.63 L (12.00-45.00) Ferritin (10.0-291.0) ng/mL Stool Occult Blood Positive H (Negative) Crossmatch See Detail 02/18/24 02/18/24 Range/Units 16:22 16:30 RBC 3.32 L (3.80-5.40) m/uL Hgb 7.8 L (11.4-16.0) gm/dL Hct 27.0 L (34.0-46.0) % MCV (80.0-100.0) fL MCH 23.4 L (25.0-35.0) pg MCHC 28.8 L (31.0-37.0) g/dL Plt Count 506 H (150-450) k/uL Lymphocytes # 0.8 L (1.0-4.8) k/uL D-Dimer (<0.60) mg/L FEU Potassium (3.5-5.1) mmol/L Chloride (98-107) mmol/L BUN (7-17) mg/dL Glucose (74-99) mg/dL Iron (50-170) UG/DL TIBC (228-460) UG/DL % Saturation (12.00-45.00) Ferritin 6.6 L (10.0-291.0) ng/mL Stool Occult Blood (Negative) Crossmatch Chest x-ray: report reviewed (No acute cardiopulmonary disease process. COPD changes.) Assessment and Plan (1) Iron deficiency anemia Narrative/Plan: 78-year-old female presenting with shortness of breath and weakness found to have iron deficient anemia. Patient denies any anticoagulation and no evidence of GI bleed. She does regularly take aspirin 325 mg 1 to 4 tablets at least twice a week. Does have a history of a former possible GI bleed with acute anemia back in 2013 without any evidence of active bleeding at that time. Patient is found to be iron deficient with iron level of 7 and ferritin at 8. She has been given 1 unit of blood this admission. Unclear etiology of iron deficiency anemia however need to rule out acute blood loss anemia. Will plan for EGD and colonoscopy, possible small bowel capsule endoscopy depending on findings. Recommend parental iron infusion. Transfuse as needed for hemoglobin less than 7. Current Visit: Yes Status: Acute Code(s): D50.9 - IRON DEFICIENCY ANEMIA, UNSPECIFIED SNOMED Code(s): 61686739 (2) COPD (chronic obstructive pulmonary disease) Current Visit: Yes Status: Acute Code(s): J44.9 - CHRONIC OBSTRUCTIVE PULMONARY DISEASE, UNSPECIFIED SNOMED Code(s): 77969394 (3) Shortness of breath Current Visit: Yes Status: Acute Code(s): R06.02 - SHORTNESS OF BREATH SNOMED Code(s): 827479512 Plan: 1. Continue symptomatic and supportive care 2. Clear liquid diet, n.p.o. after midnight 3. Parenteral iron ordered 4. Avoid any anticoagulation 5. AVoid NSAIDs 6. Bowel prep this afternoon 7. Plan for EGD and colonoscopy tomorrow, possible small bowel capsule endoscopy. Procedures discussed with patient including risk and benefit, patient is willing to proceed. 8. Daily CBC, transfuse for hemoglobin less than 7 9. Protonix 40 mg daily for GI prophylaxis Thank you for this consultation, we will continue to follow. Dr. Caity Alonzo I agree with the dictator's note, documented as a scribe by Criss Jaimes.
--- NOTE | 2024-02-19 14:06 | P.PN ---
Subjective Progress Note Date: 02/19/24 Hospital Course: 78 year old F with PMH of iron deficiency anemia, anxiety, PPD smoker and COPD presents to the ED. Reports exertional shortness of breath that has been ongoing for the past couple months but getting worse over the past week. She reports taking upwards of 6 325 mg aspirins weekly for pain. She has been taking iron supplements since then which she stopped 2 weeks ago. In the ED she underwent extensive evaluation. BP 119/78, HR 94, RR 20, T97.9F, 96% on RA. CBC, Coag panel and CMP done which showed WBC 2.88, Hg 6.6, Hct 23, MCV 79.8, Plt 576, K 5.2, Cl 112, BUN 22, glu 104. Lactic aci 1.9. Mag 2.1. Trop < 0.012. BNP 569. CXR negative for acute changes. EKG sinus rhythm with incomplete RBBB, ST depression. Venous doppler negative for LLE DVT. Patient is admitted for further workup and management. GI consulted. Recommending EGD and colonoscopy tomorrow. She is status post 1 unit of blood transfusion with improved hemoglobin. Subjective: Patient seen and examined at bedside. No acute events overnight. Pertinent positives and negatives as discussed above, a complete review of systems was performed and all other systems are negative. Vitals Signs Reviewed. General: Nontoxic, no distress, appears at stated age Derm: Warm, dry Head: Atraumatic, normocephalic, symmetric Eyes: EOMI, no lid lag, anicteric sclera Mouth: No lip lesion, mucus membranes moist Cardiovascular: S1S2 reg, no murmur Lungs: CTA bilateral, no rhonchi, no rales, no accessory muscle use Abdominal: Soft, nontender to palpation, no guarding, no appreciable organomegaly Ext: No gross muscle atrophy, no edema, no contractures Neuro: CN II-XI grossly intact, no focal neuro deficits Psych: Alert, oriented, appropriate affect Data Reviewed Today: Pertinent Labs: Hemoglobin 7.6, MCV 79.3, platelet 500, iron 8, TIBC 491, percent saturation 1.63, ferritin 6.6 Imaging: No new imaging Assessment and Plan: Active: Symptomaticacute blood loss anemia Suspected GI bleed Iron deficiency anemia GI note reviewed, pending EGD and colonoscopy tomorrow - On IV Protonix 40 twice daily - Also on IV iron daily - Hemodynamically stable - Repeat CBC tomorrow Chronic: COPD, not in exacerbation DVT ppx: SCDs Code status: Full code Anticipated discharge place: Pending clinical course Anticipated discharge time: Pending clinical course Objective - Vital Signs Vital signs: Vital Signs Temp 97.7 F 02/19/24 07:00 Pulse 92 02/19/24 09:00 Resp 18 02/19/24 07:00 BP 130/75 02/19/24 07:00 Pulse Ox 96 02/19/24 08:46 FiO2 Intake & Output 02/18/24 02/19/24 02/19/24 18:59 06:59 18:59 Intake Total 100 Balance 100 Weight 41.73 kg Intake: Blood Product 0 Rc As-1 Unit 0 [id number] Other 100 Rc As-1 Unit 100 [id number] Other: # Voids 1 - Labs CBC & Chem 7: 02/19/24 07:29 02/18/24 09:22 Labs: Abnormal Lab Results - Last 24 Hours (Table) 02/18/24 02/18/24 02/18/24 Range/Units 10:35 10:35 14:27 RBC (3.80-5.40) m/uL Hgb (11.4-16.0) gm/dL Hct (34.0-46.0) % MCV (80.0-97.0) FL MCH (25.0-35.0) pg MCHC (31.0-37.0) g/dL RDW (11.5-14.5) % Plt Count (150-450) k/uL Lymphocytes # (1.0-4.8) k/uL Eosinophils # (0.04-0.35) X 10*3/uL Iron 8 L (50-170) UG/DL TIBC 491 H (228-460) UG/DL % Saturation 1.63 L (12.00-45.00) Ferritin (10.0-291.0) ng/mL Stool Occult Blood Positive H (Negative) Crossmatch See Detail 02/18/24 02/18/24 02/19/24 Range/Units 16:22 16:30 07:29 RBC 3.32 L 3.24 L (3.80-5.40) m/uL Hgb 7.8 L 7.6 L (11.4-16.0) gm/dL Hct 27.0 L 25.7 L (34.0-46.0) % MCV 79.3 L (80.0-97.0) FL MCH 23.4 L 23.5 L (25.0-35.0) pg MCHC 28.8 L 29.6 L (31.0-37.0) g/dL RDW 15.9 H (11.5-14.5) % Plt Count 506 H 500 H (150-450) k/uL Lymphocytes # 0.8 L (1.0-4.8) k/uL Eosinophils # 0.48 H (0.04-0.35) X 10*3/uL Iron (50-170) UG/DL TIBC (228-460) UG/DL % Saturation (12.00-45.00) Ferritin 6.6 L (10.0-291.0) ng/mL Stool Occult Blood (Negative) Crossmatch
[2024-02-19] MEDS: PEG 3350 (236 GM/BTL) + LYTES 4,000 ML BOTTLE PO ONE (14:11)
[2024-02-19 14:40] VITALS: BMI 15.7
--- NOTE | 2024-02-19 16:11 | P.DS ---
Providers Date of admission: 02/18/24 13:17 Expected date of discharge: 02/19/24 Attending physician: Devonte Hernandez MD Consults: 02/18/24 14:45 Consult Physician Routine Consulting Provider: Neelam Alonzo Consult Reason/Comments: anemia acute, history of duodenitis, history of asa use Do you want consulting provider notified?: Yes Primary care physician: [facility] Course: Patient left AMA. Please see progress note from earlier today for the assessment and plan. Patient Condition at Discharge: Undetermined Plan - Discharge Summary Discharge Rx Participant: No New Discharge Prescriptions: No Action Albuterol Nebulized [Ventolin Nebulized] 2.5 mg INHALATION RT-BID Budesonide [Pulmicort] 0.5 mg INHALATION RT-BID Albuterol Sulfate [Proair Hfa] 2 puff INHALATION RT-Q6H PRN PRN Reason: Shortness Of Breath Discharge Medication List Albuterol Nebulized [Ventolin Nebulized] 2.5 mg INHALATION RT-BID 04/09/14 [History] Budesonide [Pulmicort] 0.5 mg INHALATION RT-BID 04/09/14 [History] Albuterol Sulfate [Proair Hfa] 2 puff INHALATION RT-Q6H PRN 01/23/18 [History] Follow up Appointment(s)/Referral(s): Lyssa Ching, PAC [Family Provider] - 1-2 days Discharge Disposition: LEFT AGAINST MEDICAL ADVICE
--- NOTE | 2024-02-19 17:11 | CA ---
Transthoracic Echo Report Name: Marisa Doran Age: 78 Gender: F : 1945 Exam Date: 02/19/2024 07:53 Exam Location: [place] [facility] Ht (in): 64 Wt (lb): 92 Ordering Physician: Devonte Hernandez MD Attending/Referring Phys: Mica Layer Lacy Osborn RDCS Procedure CPT: Indications: sob, le swelling Cardiac Hx: Technical Quality: Fair Contrast 1: Total Dose (mL): Contrast 2: Total Dose (mL): MEASUREMENTS (Male / Female) Normal Values 2D ECHO LV Diastolic Diameter PLAX 3.3 cm 4.2 - 5.9 / 3.9 - 5.3 cm LV Systolic Diameter PLAX 2.0 cm IVS Diastolic Thickness 1.2 cm 0.6 - 1.0 / 0.6 - 0.9 cm LVPW Diastolic Thickness 1.4 cm 0.6 - 1.0 / 0.6 - 0.9 cm LV Relative Wall Thickness 0.8 RV Internal Dim ED PLAX 3.6 cm LA Volume 40.8 cm??? 18 - 58 / 22 - 52 cm??? LA Volume Index 30.1 cm???/m??? 16 - 28 cm???/m??? M-MODE Aortic Root Diameter MM 3.2 cm LA Systolic Diameter MM 2.8 cm LA Ao Ratio MM 0.9 AV Cusp Separation MM 2.1 cm DOPPLER AV Peak Velocity 151.2 cm/s AV Peak Gradient 9.1 mmHg AV Mean Velocity 82.1 cm/s AV Mean Gradient 3.3 mmHg AV Velocity Time Integral 27.2 cm AI Peak Velocity 346.7 cm/s AI Peak Gradient 48.1 mmHg AI Pressure Half Time 608.8 ms LVOT Peak Velocity 122.2 cm/s LVOT Peak Gradient 6.0 mmHg LVOT Velocity Time Integral 27.5 cm MV Area PHT 3.4 cm??? Mitral E Point Velocity 81.8 cm/s Mitral A Point Velocity 83.6 cm/s Mitral E to A Ratio 1.0 MV Deceleration Time 220.3 ms MV E' Velocity 6.0 cm/s Mitral E to MV E' Ratio 13.5 TR Peak Velocity 312.7 cm/s TR Peak Gradient 39.1 mmHg Right Ventricular Systolic Press 43.1 mmHg FINDINGS Left Ventricle Mildly increased left ventricular wall thickness. Left ventricular cavity size normal. Normal left ventricular systolic function with no obvious regional wall motion abnormalities. Left ventricular ejection fraction is estimated at 55-60 %. Grade 1 diastolic dysfunction. Right Ventricle Mild right ventricular dilatation. Mild pulmonary hypertension. Right Atrium Right atrial dilatation. Left Atrium Mildly increased left atrial volume. Mitral Valve Structurally normal mitral valve. Mitral valve thickened. Mild mitral annular calcification. Mild mitral regurgitation. Aortic Valve Trileaflet aortic valve. No aortic stenosis. Aortic valve sclerosis. Trace to mild aortic regurgitation. Tricuspid Valve Structurally normal tricuspid valve. Mild tricuspid regurgitation. Pulmonic Valve Structurally normal pulmonic valve. Pericardium No pericardial effusion. Aorta Normal size aortic root and proximal ascending aorta. CONCLUSIONS Normal LV systolic function Mild mitral regurgitation Previewed by: Dr. Adair Alonzo MD (Electronically Signed) Final Date: 19 February 2024 17:10
[2024-02-19] MEDS ORDERED: PANTOPRAZOLE 40 MG/10 ML VIAL IVP SCH (21:00)
== END 2024-02-19 14:25 | disposition left against medical advice (07) ==
LOC: EC 09:11 → 6NMEDSUR 13:17
PROVIDERS: ADMIT Family Medicine; ATTEND Family Medicine
DX: D50.0 Iron deficiency anemia secondary to blood loss (chronic) (principal); R10.13 Epigastric pain; R60.0 Localized edema; D75.839 Thrombocytosis, unspecified; E87.5 Hyperkalemia; J44.9 Chronic obstructive pulmonary disease, unspecified; F41.9 Anxiety disorder, unspecified; F17.200 Nicotine dependence, unspecified, uncomplicated; Z79.899 Other long term (current) drug therapy; Z88.6 Allergy status to analgesic agent; Z88.2 Allergy status to sulfonamides; Z88.5 Allergy status to narcotic agent; Z53.29 Procedure and treatment not carried out because of patient's decision for other reasons
CPT/HCPCS: 96365; 36430; 99285; 36415; 94640 ×2; 94760; 93005; 93306; 86900; 86901; 85379; 83880; 80053; 82607; 82728; 82746; 83540; 83550; 83605; 83735; 84484; 85025 ×2; 85610; 85730; 86850; 86920; 82272; 71046; 93971; G0378 ×2; P9016; J2916

== ENCOUNTER → 2024-09-03 | Outpatient (CLI) | payer MEDICARE ==
--- NOTE | 2024-09-03 15:25 | XR ---
EXAMINATION TYPE: XR chest 2V DATE OF EXAM: 09/03/2024 3:03 PM COMPARISON: Chest radiographs from 02/18/2024 CLINICAL INDICATION: Female, 79 years old with history of R0602,R609,J449 SOB,EDEMA,COPD; [facility] TECHNIQUE: XR chest 2V Frontal and lateral views of the chest. FINDINGS: Lungs/Pleura: There is flattening of the diaphragm with increased lucency of the lungs. No evidence o f pneumothorax, pleural effusion or focal consolidation. Pulmonary vascularity: Unremarkable. Heart/mediastinum: Cardiomediastinal silhouette is unremarkable. Musculoskeletal: No acute osseous pathology. IMPRESSION: 1. No acute cardiopulmonary disease process. 2. COPD changes. [facility], , 09/03/2024 3:23 PM
== END | disposition home or self-care (01) ==
LOC: RADXRYALE 14:50
PROVIDERS: ATTEND Physician Assistant Medical
CPT/HCPCS: 71046

== ENCOUNTER 2024-09-10 16:28 | Emergency (ER) | payer MEDICARE ==
--- NOTE | 2024-09-10 17:15 | ED ---
General Adult HPI - General Chief complaint: Shortness of Breath Stated complaint: ADRIA Time Seen by Provider: 09/10/24 16:45 Source: patient, family, RN notes reviewed, old records reviewed Mode of arrival: wheelchair Limitations: no limitations - History of Present Illness Initial comments: This is a 79-year-old female who presents to the emergency department complaining of difficulty breathing. Patient states has been ongoing for the last few days. Patient says she has a history of anemia and she thinks that is what might be going on today. Patient states about once a year she needs a blood transfusion. Patient states she also has a history of COPD because she smoked all her life and continues to smoke. Patient denies chest pain palpitati ons fever chills or cough. Patient denies any abdominal pain patient has nausea vomiting. Patient has noted some increased swelling to her legs. - Related Data Home Medications Medication Instructions Recorded Confirmed Albuterol Nebulized [Ventolin 2.5 mg INHALATION RT-BID 04/09/14 09/10/24 Nebulized] Budesonide [Pulmicort] 0.5 mg INHALATION RT-BID 04/09/14 09/10/24 Albuterol Sulfate [Proair Hfa] 2 puff INHALATION RT-Q6H PRN 01/23/18 09/10/24 Calcium Citrate 250 mg PO BID 09/10/24 09/10/24 Cholecalciferol [Vitamin D3 (25 25 mcg PO DAILY 09/10/24 09/10/24 Mcg = 1000 Iu)] Ferrous Sulfate [Feosol] 325 mg PO DAILY 09/10/24 09/10/24 Furosemide [Lasix] 20 mg PO DAILY@1600 09/10/24 09/10/24 Magnesium Citrate 250 mg PO BID 09/10/24 09/10/24 Pyridoxine HCl (Vitamin B6) 10 mg PO DAILY 09/10/24 09/10/24 [Vitamin B-6] Zinc Gluconate [Zinc] 50 mg PO DAILY 09/10/24 09/10/24 Allergies Allergy/AdvReac Type Severity Reaction Status Date / Time acetaminophen [From Tylenol] Allergy Unknown Verified 09/10/24 17:54 Antihistamines - Alkylamine Allergy Anaphylaxis Verified 09/10/24 17:54 guaifenesin Allergy Unknown Verified 09/10/24 17:54 lorazepam [From Ativan] Allergy psychotic Verified 09/10/24 17:54 behavior shellfish derived Allergy Swelling Verified 09/10/24 17:54 Sulfa (Sulfonamide Allergy Unknown Verified 09/10/24 18:00 Antibiotics) alprazolam [From Xanax] AdvReac psychotic Verified 09/10/24 17:54 behavior codeine AdvReac Vomiting Verified 09/10/24 17:54 Corticosteroids AdvReac psychotic Verified 09/10/24 17:54 (Glucocorticoids) reaction Review of Systems ROS Statement: Those systems with pertinent positive or pertinent negative responses have been documented in the HPI. ROS Other: All systems not noted in ROS Statement are negative. Past Medical History Past Medical History: Asthma, COPD Additional Past Medical History / Comment(s): BRONCHITIS, ANEMIA, POST MENOPAUSAL, CURRENTLY POS OCCULT STOOL History of Any Multi-Drug Resistant Organisms: None Reported Past Surgical History: No Surgical Hx Reported Additional Past Surgical History / Comment(s): EGD 04-10-14 Past Anesthesia/Blood Transfusion Reactions: Motion Sickness Additional Past Anesthesia/Blood Transfusion Reaction / Comment(s): NEVER HAS HAD GENERAL ANESTHESIA Past Psychological History: Anxiety Smoking Status: Current every day smoker Past Alcohol Use History: None Reported Past Drug Use History: None Reported - Past Family History Sister(s) Family Medical History: Cancer Additional Family Medical History / Comment(s): COLON CA General Exam - General Exam Comments Initial Comments: GENERAL: Patient is well-developed and well-nourished. Patient is nontoxic and well- hydrated and is in mild distress. ENT: Neck is soft and supple. No significant lymphadenopathy is noted. Oropharynx is clear. Moist mucous membranes. Neck has full range of motion without eliciting any pain. EYES: The sclera were anicteric and conjunctiva pale. Extraocular movements were intact and pupils were equal round and reactive to light. Eyelids were unremarkable. PULMONARY: Unlabored respirations. Good breath sounds bilaterally. No audible rales rhonchi or wheezing was noted. CARDIOVASCULAR: There is a regular rate and rhythm without any murmurs gallops or rubs. ABDOMEN: Soft and nontender with normal bowel sounds. No palpable organomegaly was note d. There is no palpable pulsatile mass. SKIN: Skin is very pale NEUROLOGIC: Patient is alert and oriented x3. Cranial nerves II through XII are grossly intact. Motor and sensory are also intact. Normal speech, volume and content. Symmetrical smile. MUSCULOSKELETAL: Normal extremities with adequate strength and full range of motion. No lower extremity swelling or edema. No calf tenderness. LYMPHATICS: No significant lymphadenopathy is noted PSYCHIATRIC: Normal psychiatric evaluation. Limitations: no limitations Course Vital Signs 09/10/24 09/10/24 09/10/24 16:33 16:46 16:57 Temperature 98.3 F 98.3 F Pulse Rate 102 H 101 H Respiratory 36 H 30 H 28 H Rate Blood Pressure 112/60 115/75 O2 Sat by Pulse 91 L 90 L Oximetry 09/10/24 09/10/24 09/10/24 17:00 18:00 18:32 Temperature 98.5 F Pulse Rate 94 104 H Respiratory 17 Rate Blood Pressure 122/72 O2 Sat by Pulse 99 100 Oximetry 09/10/24 18:45 Temperature Pulse Rate 100 Respiratory Rate Blood Pressure O2 Sat by Pulse Oximetry Medical Decision Making - Medical Decision Making EKG is interpreted by myself. EKG shows a sinus rhythm at [address] is 180 QRS is 104 QT interval is 348 QTc is 4 1. Patient's EKG shows no ST segment elevation Was pt. sent in by a medical professional or institution (, PA, EMS INSTRUCTOR, urgent care, hospital, or halfway...) When possible be specific @ -No Did you speak to anyone other than the patient for history (EMS, parent, family, police, friend...)? What history was obtained from this source @ -No Did you review nursing and triage notes (agree or disagree)? Why? @ -I reviewed and agree with nursing and triage notes Were old charts reviewed (outside hosp., previous admission, EMS record, old EKG, old radiological studies, urgent care reports/EKG's, halfway records)? Report findings @ -No old charts were reviewed Differential Diagnosis? @ -Differential Dyspnea: Coronary syndrome, arrhythmia, tamponade, asthma, COPD, pulmonary embolism, pneumonia, pneumothorax, pulmonary effusion, anaphylaxis, diabetic ketoacidosis, flailed chest, pulmonary contusion, diaphragmatic rupture, anemia, neuromuscular, this is not meant to be an all-inclusive list. EKG interpreted by me (3pts min.). @ -As above X-rays interpreted by me (1pt min.). @ -X-ray showed no acute normality CT interpreted by me (1pt min.). @ -None done U/S interpreted by me (1pt. min.). @ -None done What testing was considered but not performed or refused? (CT, X-rays, U/S, labs)? Why? @ -None What meds were considered but not given or refused? Why? @ -None Did you discuss the management of the patient with other professionals (professionals i.e. , PA, EMS INSTRUCTOR, lab, RT, psych nurse, neonatal social worker, cafe server, teacher, chief analytics officer, keycase assembler)? Give summary @ -No Was smoking cessation discussed for >3mins.? @ -No Was critical care preformed (if so, how long)? @ -No Were there social determinants of health that impacted care today? How? (Homelessness, low income, unemployed, alcoholism, drug addiction, transportation, low edu. Level, literacy, decrease access to med. care, half-way, rehab)? @ -No Was there de-escalation of care discussed even if they declined (Discuss DNR or withdrawal of care, Hospice)? DNR status @ -No What co-morbidities impacted this encounter? (DM, HTN, Smoking, COPD, CAD, Cancer, CVA, ARF, Chemo, Hep., AIDS, mental health diagnosis, sleep apnea, morbid obesity)? @ -None Was patient admitted / discharged? Hospital course, mention meds given and route, prescriptions, significant lab abnormalities, going to OR and other pertinent info. @ -Patient's hemoglobin was 7.6 which is a little higher than normal. Patient is also scheduled for transfusion of 1 unit of packed red blood cells. Patient did get 2 breathing treatments and steroids here and was feeling considerably better she ambulated around the emergency department and felt better than she did earlier she states. Given marijuana Undiagnosed new problem with uncertain prognosis? @ -No Drug Therapy requiring intensive monitoring for toxicity (Heparin, Nitro, Insulin, Cardizem)? @ -No Were any procedures done? @ -No Diagnosis/symptom? @ -Chronic anemia Acute, or Chronic, or Acute on Chronic? @ -Chronic Uncomplicated (without systemic symptoms) or Complicated (systemic symptoms)? @ -Complicated Side effects of treatment? @ -No Exacerbation, Progression, or Severe Exacerbation? @ -No Poses a threat to life or bodily function? How? (Chest pain, [place], [place], pneumonia, PE, COPD, DKA, ARF, appy, cholecystitis, CVA, Diverticulitis, Homicidal, Suicidal, threat to staff... and all critical care pts) @ -No Diagnosis/symptom? @ -COPD exacerbation Acute, or Chronic, or Acute on Chronic? @ -Acute Uncomplicated (without systemic symptoms) or Complicated (systemic symptoms)? @ -Complicated Side effects of treatment? @ -None Exacerbation, Progression, or Severe Exacerbation] @ -No Poses a threat to life or bodily function? @ -No - Lab Data Result diagrams: 09/10/24 17:04 09/10/24 17:04 Lab Results 09/10/24 09/10/24 09/10/24 Range/Units 17:04 17:04 17:04 WBC 14.6 H (3.8-10.6) k/uL RBC 3.49 L (3.80-5.40) m/uL Hgb 7.6 L (11.4-16.0) gm/dL Hct 26.9 L (34.0-46.0) % MCV 77.1 L (80.0-100.0) fL MCH 21.9 L (25.0-35.0) pg MCHC 28.4 L (31.0-37.0) g/dL RDW 17.0 H (11.5-15.5) % Plt Count 521 H (150-450) k/uL MPV 6.6 Neutrophils % 87 % Lymphocytes % 7 % Monocytes % 5 % Eosinophils % 1 % Basophils % 0 % Neutrophils # 12.7 H (1.3-7.7) k/uL Lymphocytes # 1.0 (1.0-4.8) k/uL Monocytes # 0.7 (0-1.0) k/uL Eosinophils # 0.1 (0-0.7) k/uL Basophils # 0.0 (0-0.2) k/uL Hypochromasia Marked Poikilocytosis Marked Anisocytosis Slight Microcytosis Slight PT 11.0 (10.0-12.5) sec INR 1.0 (<1.2) APTT 23.1 (22.0-30.0) sec Sodium 141 (137-145) mmol/L Potassium 4.0 (3.5-5.1) mmol/L Chloride 104 (98-107) mmol/L Carbon Dioxide 31 H (22-30) mmol/L Anion Gap 6 mmol/L BUN 18 H (7-17) mg/dL Creatinine 0.72 (0.52-1.04) mg/dL Est GFR (CKD-EPI)AfAm >90 (>60 ml/min/1.73 sqM) Est GFR (CKD-EPI)NonAf 81 (>60 ml/min/1.73 sqM) Glucose 88 (74-99) mg/dL Plasma Lactic Acid Blas (0.7-2.0) mmol/L Calcium 9.6 (8.4-10.2) mg/dL Magnesium 2.1 (1.6-2.3) mg/dL Total Bilirubin 0.4 (0.2-1.3) mg/dL AST 24 (14-36) U/L ALT 13 (4-34) U/L Alkaline Phosphatase 79 (38-126) U/L Troponin I (0.000-0.034) ng/mL NT-Pro-B Natriuret Pep 553 pg/mL Total Protein 6.4 (6.3-8.2) g/dL Albumin 3.8 (3.5-5.0) g/dL Blood Type Blood Type Recheck Bld Type Recheck Status Antibody Screen Spec Expiration Date 09/10/24 09/10/24 09/10/24 Range/Units 17:04 17:04 17:05 WBC (3.8-10.6) k/uL RBC (3.80-5.40) m/uL Hgb (11.4-16.0) gm/dL Hct (34.0-46.0) % MCV (80.0-100.0) fL MCH (25.0-35.0) pg MCHC (31.0-37.0) g/dL RDW (11.5-15.5) % Plt Count (150-450) k/uL MPV Neutrophils % % Lymphocytes % % Monocytes % % Eosinophils % % Basophils % % Neutrophils # (1.3-7.7) k/uL Lymphocytes # (1.0-4.8) k/uL Monocytes # (0-1.0) k/uL Eosinophils # (0-0.7) k/uL Basophils # (0-0.2) k/uL Hypochromasia Poikilocytosis Anisocytosis Microcytosis PT (10.0-12.5) sec INR (<1.2) APTT (22.0-30.0) sec Sodium (137-145) mmol/L Potassium (3.5-5.1) mmol/L Chloride (98-107) mmol/L Carbon Dioxide (22-30) mmol/L Anion Gap mmol/L BUN (7-17) mg/dL Creatinine (0.52-1.04) mg/dL Est GFR (CKD-EPI)AfAm (>60 ml/min/1.73 sqM) Est GFR (CKD-EPI)NonAf (>60 ml/min/1.73 sqM) Glucose (74-99) mg/dL Plasma Lactic Acid Blas 1.2 (0.7-2.0) mmol/L Calcium (8.4-10.2) mg/dL Magnesium (1.6-2.3) mg/dL Total Bilirubin (0.2-1.3) mg/dL AST (14-36) U/L ALT (4-34) U/L Alkaline Phosphatase (38-126) U/L Troponin I <0.012 (0.000-0.034) ng/mL NT-Pro-B Natriuret Pep pg/mL Total Protein (6.3-8.2) g/dL Albumin (3.5-5.0) g/dL Blood Type AB Positive Blood Type Recheck AB Pos Bld Type Recheck Status No Antibody Screen NEGATIVE Spec Expiration Date 09/13/2024 - 2299 Disposition Clinical Impression: COPD exacerbation, Chronic anemia Disposition: HOME SELF-CARE Instructions (If sedation given, give patient instructions): COPD (Chronic Obstructive Pulmonary Disease) (ED), Anemia (ED) Is patient prescribed a controlled substance at d/c from ED?: No Referrals: Adam Blakely DO [Primary Care Provider] - 1-2 days Time of Disposition: 19:57
[2024-09-10 17:20] LABS: Anisocytosis Slight; Basophils % (A) 0 %; Eosinophils # (A) 0.1 k/uL (0-0.7); Eosinophils % (A) 1 %; HCT 26.9 % (34.0-46.0); HGB 7.6 gm/dL (11.4-16.0); Hypochromasia Marked; Lymphocytes % (A) 7 %; MCH 21.9 pg (25.0-35.0); MCHC 28.4 g/dL (31.0-37.0); MCV 77.1 fL (80.0-100.0); Mean Platelet Volume 6.6; Microcytosis Slight; Monocytes # (A) 0.7 k/uL (0-1.0); Monocytes % (A) 5 %; Neutrophils # (A) 12.7 k/uL (1.3-7.7); Neutrophils % (A) 87 %; Platelet Count 521 k/uL (150-450); Poikilocytosis Marked; RBC 3.49 m/uL (3.80-5.40); WBC 14.6 k/uL (3.8-10.6)
[2024-09-10 17:33] LABS: Partial Thromboplastin Time 23.1 sec (22.0-30.0)
[2024-09-10 17:34] LABS: ALT 13 U/L (4-34); AST 24 U/L (14-36); African American GFR (CKD) >90 (>60 ml/min/1.73 sqM); Albumin 3.8 g/dL (3.5-5.0); Alkaline Phosphatase 79 U/L (38-126); Anion Gap 6 mmol/L; Blood Urea Nitrogen 18 mg/dL (7-17); Calcium 9.6 mg/dL (8.4-10.2); Carbon Dioxide 31 mmol/L (22-30); Chloride 104 mmol/L (98-107); Glucose 88 mg/dL (74-99); Magnesium 2.1 mg/dL (1.6-2.3); Non-African American GFR(CKD) 81 (>60 ml/min/1.73 sqM); Sodium 141 mmol/L (137-145); Total Bilirubin 0.4 mg/dL (0.2-1.3); Total Protein 6.4 g/dL (6.3-8.2)
[2024-09-10 17:43] LABS: NT-Pro-B-Type Natriuretic Pept 553 pg/mL
--- NOTE | 2024-09-10 17:53 | XR ---
EXAMINATION TYPE: XR chest 2V DATE OF EXAM: 09/10/2024 5:31 PM COMPARISON: Chest radiographs from 08 24 2024 CLINICAL INDICATION: Female, 79 years old with history of difficulty breathing; [facility] TECHNIQUE: XR chest 2V Frontal and lateral views of the chest. FINDINGS: Lungs/Pleura: There is flattening of the diaphragm with increased lucency of the lungs. No evidence o f pneumothorax, pleural effusion or focal consolidation. Pulmonary vascularity: Unremarkable. Heart/mediastinum: Cardiomediastinal silhouette is unremarkable. Musculoskeletal: No acute osseous pathology. Other findings: None IMPRESSION: 1. No acute cardiopulmonary disease process. 2. COPD changes. [facility], , 09/10/2024 5:51 PM
[2024-09-10] MEDS: methylPREDNISolone SOD SUCCI 125 MG/2 ML VIAL IV STA (18:28)
[2024-09-10] MEDS: IPRATROPIUM 0.5 MG/2.5 ML NEBU INHALATION STA (18:31)
[2024-09-10] MEDS: ALBUTEROL NEBULIZED 2.5 MG/3 ML INHALATION STA (18:31)
[2024-09-10 19:58] VITALS: BP 120/68; PULSE 98; RESP 20; TEMP 98.4
== END 2024-09-10 20:05 | disposition home or self-care (01) ==
LOC: EC 16:28
DX: D64.9 Anemia, unspecified (principal); J44.1 Chronic obstructive pulmonary disease with (acute) exacerbation; F17.200 Nicotine dependence, unspecified, uncomplicated; Z88.1 Allergy status to other antibiotic agents; Z88.2 Allergy status to sulfonamides; Z88.5 Allergy status to narcotic agent; Z88.6 Allergy status to analgesic agent; Z91.013 Allergy to seafood; Z88.8 Allergy status to other drugs, medicaments and biological substances
CPT/HCPCS: 36415; 71046; 80053; 83605; 83735; 83880; 84484; 85025; 85610; 85730; 86850; 86900; 86901; 93005; 94640; 96374; 99285

== ENCOUNTER 2024-10-21 10:40 | Emergency (ER) | payer MEDICARE ==
[2024-10-21 10:51] VITALS: TEMP 98.2
--- NOTE | 2024-10-21 11:12 | ED ---
General Adult HPI - General Chief complaint: Abdominal Pain Stated complaint: Abd/back pain Time Seen by Provider: 10/21/24 10:52 Source: patient Mode of arrival: wheelchair Limitations: no limitations - History of Present Illness Initial comments: Dictation was produced using [employer] dictation software. please excuse any grammatical, word or spelling errors. Chief Complaint: 79-year-old female with asthma and COPD presents to the ER for back and abdominal pain History of Present Illness: Patient 71-year-old male presents with back and abdominal pain. Patient states that yesterday she started to feel some pain in her right lateral back at the thoracolumbar level. States that the pain wraps around to her abdomen. No nausea vomiting or diarrhea. Patient denies any history of abdominal surgery. Denies any fever chills or night sweats. Patient states that her symptoms seem to be only exacerbated by movement. No radiation of symptoms to the lower extremities. No saddle anesthesia The ROS documented in this emergency department record has been reviewed and confirmed by me. Those systems with pertinent positive or negative responses have been documented in the HPI. All other systems are other negative and/or noncontributory. - Related Data Home Medications Medication Instructions Recorded Confirmed Albuterol Nebulized [Ventolin 2.5 mg INHALATION RT-BID 04/09/14 10/21/24 Nebulized] Budesonide [Pulmicort] 0.5 mg INHALATION RT-BID 04/09/14 10/21/24 Albuterol Sulfate [Proair Hfa] 2 puff INHALATION RT-Q6H PRN 01/23/18 10/21/24 Calcium Citrate 250 mg PO BID 09/10/24 10/21/24 Cholecalciferol [Vitamin D3 (25 25 mcg PO DAILY 09/10/24 10/21/24 Mcg = 1000 Iu)] Ferrous Sulfate [Feosol] 325 mg PO DAILY 09/10/24 10/21/24 Furosemide [Lasix] 20 mg PO DAILY@1600 09/10/24 10/21/24 Magnesium Citrate 250 mg PO BID 09/10/24 10/21/24 Pyridoxine HCl (Vitamin B6) 10 mg PO DAILY 09/10/24 10/21/24 [Vitamin B-6] Zinc Gluconate [Zinc] 50 mg PO DAILY 09/10/24 10/21/24 Tiotropium Monon [Spiriva] 1 puff INHALATION RT-DAILY 10/21/24 10/21/24 Allergies Allergy/AdvReac Type Severity Reaction Status Date / Time acetaminophen [From Tylenol] Allergy Unknown Verified 10/21/24 12:59 Antihistamines - Alkylamine Allergy Anaphylaxis Verified 10/21/24 12:59 guaifenesin Allergy Unknown Verified 10/21/24 12:59 shellfish derived Allergy Swelling Verified 10/21/24 12:59 Sulfa (Sulfonamide Allergy Unknown Verified 10/21/24 12:59 Antibiotics) alprazolam [From Xanax] AdvReac psychotic Verified 10/21/24 12:59 behavior codeine AdvReac Vomiting Verified 10/21/24 12:59 Corticosteroids AdvReac psychotic Verified 10/21/24 12:59 (Glucocorticoids) reaction lorazepam [From Ativan] AdvReac psychotic Verified 10/21/24 12:59 behavior Review of Systems ROS Statement: Those systems with pertinent positive or pertinent negative responses have been documented in the HPI. ROS Other: All systems not noted in ROS Statement are negative. Past Medical History Past Medical History: Asthma, COPD Additional Past Medical History / Comment(s): BRONCHITIS, ANEMIA, POST MENOPAUSAL, CURRENTLY POS OCCULT STOOL History of Any Multi-Drug Resistant Organisms: None Reported Past Surgical History: No Surgical Hx Reported Additional Past Surgical History / Comment(s): EGD 6 Past Anesthesia/Blood Transfusion Reactions: Motion Sickness Additional Past Anesthesia/Blood Transfusion Reaction / Comment(s): NEVER HAS HAD GENERAL ANESTHESIA Past Psychological History: Anxiety Smoking Status: Current every day smoker Past Alcohol Use History: None Reported Past Drug Use History: None Reported - Past Family History Sister(s) Family Medical History: Cancer Additional Family Medical History / Comment(s): COLON [place] General Exam - General Exam Comments Initial Comments: PHYSICAL EXAM: General Impression: Alert and oriented x3, not in acute distress HEENT: Normocephalic atraumatic, extra-ocular movements intact, pupils equal and reactive to light bilaterally, mucous membranes moist. Cardiovascular: Heart regular rate and rhythm Chest: Able to complete full sentences, no retractions, no tachypnea Abdomen: abdomen soft, non-tender, non-distended, no organomegaly Musculoskeletal: Pulses present and equal in all extremities, no peripheral edema Motor: no focal deficits noted Neurological: CN II-XII grossly intact, no focal motor or sensory deficits noted Skin: Intact with no visualized rashes Psych: Normal affect and mood Limitations: no limitations Course Vital Signs 10/21/24 10/21/24 10/21/24 10:48 14:07 14:40 Temperature 98.2 F Pulse Rate 113 H 107 H 106 H Respiratory 18 18 20 Rate Blood Pressure 134/88 136/96 148/100 O2 Sat by Pulse 98 96 98 Oximetry Medical Decision Making - Medical Decision Making Was pt. sent in by a medical professional or institution (, PA, SHIPWRIGHT SUPERVISOR, urgent care, hospital, or jail...) When possible be specific @ -No Did you speak to anyone other than the patient for history (EMS, parent, family, police, friend...)? What history was obtained from this source @ -No Did you review nursing and triage notes (agree or disagree)? Why? @ -I reviewed and agree with nursing and triage notes Were old charts reviewed (outside hosp., previous admission, EMS record, old EKG, old radiological studies, urgent care reports/EKG's, jail records)? Report findings @ -No old charts were reviewed Differential Diagnosis (chest pain, altered mental status, abdominal pain women, abdominal pain men, vaginal bleeding, musculoskeletal, weakness, fever, dyspnea, syncope, headache, dizziness, GI bleed, back pain, seizure, CVA, palpatations, mental health)? @ -Differential Abdominal Pain Men: Appendicitis, cholecystitis, diverticulosis, ischemic bowel, pancreatitis, hepatitis, UTI, gastroenteritis, AAA, incarcerated hernia, bowel obstruction, constipation, inflammatory bowel, hepatitis, peptic ulcer disease, splenic infarction, perforated viscus, testicular torsion, this is not meant to be an all-inclusive list EKG interpreted by me (3pts min.). @ -None done X-rays interpreted by me (1pt min.). @ -None done CT interpreted by me (1pt min.). @ -CT of the abdomen pelvis shows large cystic mass in the pelvis measuring approximately 10 x 5 x 9.8 cm. There is another right ovarian lesion. Measuring 4.[address] concerning for colonic ileus U/S interpreted by me (1pt. min.). @ -Ultrasound pelvis shows large pelvic mass measuring 11.3 x 9.4 x 9.3 also complex lesions in the right adnexa What testing was considered but not performed or refused? (CT, X-rays, U/S, labs)? Why? @ -None What meds were considered but not given or refused? Why? @ -None Was smoking cessation discussed for >3mins.? @ -No Were there social determinants of health that impacted care today? How? (Homel essness, low income, unemployed, alcoholism, drug addiction, transportation, low edu. Level, literacy, decrease access to med. care, long term, rehab)? @ -No Was there de-escalation of care discussed even if they declined (Discuss DNR or withdrawal of care, Hospice)? DNR status @ -No What co-morbidities impacted this encounter? (DM, HTN, Smoking, COPD, CAD, Cancer, CVA, ARF, Chemo, Hep., AIDS, mental health diagnosis, sleep apnea, morbid obesity)? @ -None Was patient admitted / discharged? Hospital course, mention meds given and route, prescriptions, significant lab abnormalities, going to OR and other pertinent info. @ -71-year-old female presents to the emergency department with back and ab dominal pain. Vital signs upon arrival shows mild tachycardia 113, rest of vital signs within acceptable limits. Patient denies any GI symptoms. She states that pain is mostly in her back radiates to her abdomen. Imaging studies obtained showing cystic masses. There is also concern of colonic ileus. Clinically patient does not have any symptoms of nausea vomiting abdominal pain or diarrhea. No clinical concern for colonic ileus at this time. There was finding of pelvic masses. Patient and daughter were notified of these masses. They were offered hospital admission consultation to gynecology oncology however would prefer to pursue these evaluations outpatient. Patient given prescription for Robaxin for concern of perhaps musculoskeletal back pain. Did you discuss the management of the patient with other professionals (professionals i.e. , PA, SHIPWRIGHT SUPERVISOR, lab, RT, psych nurse, social media analyst, navy airspace officer, teacher, correctional officer, case technician)? Give summary @ -No Was critical care preformed (if so, how long)? @ -No Undiagnosed new problem with uncertain prognosis? @ -No Drug Therapy requiring intensive monitoring for toxicity (Heparin, Nitro, Insulin, Cardizem)? @ -No Were any procedures done? @ -No Diagnosis/symptom? Acute, or Chronic, or Acute on Chronic? Uncomplicated (wi thout systemic symptoms) or Complicated (systemic symptoms)? @ -Back pain, pelvic mass Side effects of treatment? @ -No Exacerbation, Progression, or Severe Exacerbation? @ -No Poses a threat to life or bodily function? How? (Chest pain, [place], [place], pneumonia, PE, COPD, DKA, ARF, appy, cholecystitis, CVA, Diverticulitis, Homicidal, Suicidal, threat to staff... and all critical care pts) @ -yes - Lab Data Result diagrams: 10/21/24 11:10/21/24 11:22 Lab Results 10/21/24 10/21/24 10/21/24 Range/Units 11:22 11:22 11:22 WBC 7.6 (3.8-10.6) k/uL RBC 5.03 (3.80-5.40) m/uL Hgb 13.0 D (11.4-16.0) gm/dL Hct 42.2 (34.0-46.0) % MCV 83.8 D (80.0-100.0) fL MCH 25.9 (25.0-35.0) pg MCHC 30.8 L (31.0-37.0) g/dL RDW 20.2 H (11.5-15.5) % Plt Count 313 (150-450) k/uL MPV 7.2 Neutrophils % 84 % Lymphocytes % 10 % Monocytes % 4 % Eosinophils % 1 % Basophils % 0 % Neutrophils # 6.4 (1.3-7.7) k/uL Lymphocytes # 0.7 L (1.0-4.8) k/uL Monocytes # 0.3 (0-1.0) k/uL Eosinophils # 0.1 (0-0.7) k/uL Basophils # 0.0 (0-0.2) k/uL Hypochromasia Marked Anisocytosis Moderate Microcytosis Slight PT 10.6 (10.0-12.5) sec INR 0.9 (<1.2) APTT 22.9 (22.0-30.0) sec Sodium 137 (137-145) mmol/L Potassium 4.5 (3.5-5.1) mmol/L Chloride 101 (98-107) mmol/L Carbon Dioxide 30 (22-30) mmol/L Anion Gap 6 mmol/L BUN 18 H (7-17) mg/dL Creatinine 0.78 (0.52-1.04) mg/dL Est GFR (CKD-EPI)AfAm 85 (>60 ml/min/1.73 sqM) Est GFR (CKD-EPI)NonAf 73 (>60 ml/min/1.73 sqM) Glucose 99 (74-99) mg/dL Calcium 9.9 (8.4-10.2) mg/dL Total Bilirubin 0.8 (0.2-1.3) mg/dL AST 37 H (14-36) U/L ALT 23 (4-34) U/L Alkaline Phosphatase 77 (38-126) U/L Total Protein 7.2 (6.3-8.2) g/dL Albumin 4.2 (3.5-5.0) g/dL Lipase 73 (23-300) U/L Disposition Clinical Impression: Back pain, Pelvic mass Disposition: HOME SELF-CARE Condition: Fair Is patient prescribed a controlled substance at d/c from ED?: No Referrals: Adam Blakely DO [Primary Care Provider] - 1-2 days Lyssa Fofana DO [Doctor of Osteopathic Medicine] - 1-2 days Joey Salas [STAFF PHYSICIAN] - 1-2 days Time of Disposition: 15:18
[2024-10-21 11:46] LABS: Anisocytosis Moderate; Basophils % (A) 0 %; Eosinophils # (A) 0.1 k/uL (0-0.7); Eosinophils % (A) 1 %; HCT 42.2 % (34.0-46.0); Hypochromasia Marked; Lymphocytes # (A) 0.7 k/uL (1.0-4.8); Lymphocytes % (A) 10 %; MCH 25.9 pg (25.0-35.0); MCHC 30.8 g/dL (31.0-37.0); Mean Platelet Volume 7.2; Microcytosis Slight; Monocytes # (A) 0.3 k/uL (0-1.0); Monocytes % (A) 4 %; Neutrophils # (A) 6.4 k/uL (1.3-7.7); Neutrophils % (A) 84 %; Platelet Count 313 k/uL (150-450); RBC 5.03 m/uL (3.80-5.40); RDW 20.2 % (11.5-15.5); WBC 7.6 k/uL (3.8-10.6)
[2024-10-21 11:47] LABS: MCV 83.8 fL (80.0-100.0)
[2024-10-21 11:49] LABS: INR 0.9 (<1.2); Partial Thromboplastin Time 22.9 sec (22.0-30.0); Prothrombin Time 10.6 sec (10.0-12.5)
[2024-10-21 11:51] LABS: ALT 23 U/L (4-34); AST 37 U/L (14-36); African American GFR (CKD) 85 (>60 ml/min/1.73 sqM); Albumin 4.2 g/dL (3.5-5.0); Alkaline Phosphatase 77 U/L (38-126); Anion Gap 6 mmol/L; Blood Urea Nitrogen 18 mg/dL (7-17); Calcium 9.9 mg/dL (8.4-10.2); Carbon Dioxide 30 mmol/L (22-30); Chloride 101 mmol/L (98-107); Glucose 99 mg/dL (74-99); Lipase 73 U/L (23-300); Non-African American GFR(CKD) 73 (>60 ml/min/1.73 sqM); Potassium 4.5 mmol/L (3.5-5.1); Sodium 137 mmol/L (137-145); Total Bilirubin 0.8 mg/dL (0.2-1.3); Total Protein 7.2 g/dL (6.3-8.2)
--- NOTE | 2024-10-21 13:00 | CT ---
EXAMINATION TYPE: CT abdomen pelvis w con CT DLP: 426.3 mGycm, Automated exposure control for dose reduction was used. DATE OF EXAM: 10/21/2024 12:49 PM COMPARISON: Chest radiograph 09/10/2024 CLINICAL INDICATION:Female, 79 years old with history of back and abdominal pain; ABD PAIN TECHNIQUE: Standard CT of the abdomen and pelvis following the administration of 80 cc of Isovue 30 0 IV contrast material. Coronal and sagittal reformats were performed. FINDINGS: LOWER CHEST: Mild cardiomegaly. Bibasilar subsegmental atelectasis. ABDOMEN LIVER: Unremarkable GALLBLADDER AND BILE DUCTS: Unremarkable. PANCREAS: Unremarkable. SPLEEN: Unremarkable. ADRENAL GLANDS: Unremarkable. KIDNEYS AND URETERS: No evidence of hydronephrosis or renal calculus. The kidneys enhance symmetrical ly. Couple of right renal cysts with largest in the inferior pole measuring up to 1.3 cm. Left mid ki dney and 1.6 cm cyst. Contrast is demonstrated within both collecting systems on the delayed phase. PELVIS BLADDER: Incompletely distended but grossly unremarkable. REPRODUCTIVE: Right ovarian lesion measuring up to 4.4 cm with peripheral coarse calcifications. Midl ine pelvic 10.5 x 9.8 cm cystic lesion with coarse calcification along the superior aspect appears to originate from the left ovary. There may be some eccentric soft tissue. ABDOMEN & PELVIS STOMACH AND BOWEL: Small hiatal hernia, duodenum is unremarkable. Distal colonic diverticulosis witho ut evidence for acute diverticulitis moderate amount of gas and stool is present within the colon. No focal bowel wall thickening or surrounding inflammatory changes. The appendix is not definitively id entified. No evidence of bowel obstruction. PERITONEUM: No evidence of pneumoperitoneum or free fluid. VASCULATURE: Moderate atherosclerotic calcifications are present throughout the abdominal aorta and i ts branches. No evidence of aortic aneurysm. Tortuosity of the abdominal aorta. MUSCULOSKELETAL: No acute osseous abnormalities. No aggressive osseous lesion. Grade 1 anterolisthesi s of L5 on S1 without evidence of pars defects. LYMPH NODES: No evidence for lymphadenopathy. SOFT TISSUE/ABDOMINAL WALL: Unremarkable IMPRESSION: 1. Indeterminate pelvic 10.5 cm cystic lesion. Probable left ovarian origin. Additional indeterminate right ovarian soft tissue lesion with coarse calcifications. Raises possibility of malignancy. Furth er evaluation with pelvic ultrasound is recommended. 2. Moderate colonic distention with gas and stool without focal transition point. No evidence for obs truction. Correlate for colonic ileus. 3. Distal colonic diverticulosis without evidence for acute diverticulitis. [facility], , 10/21/2024 12:58 PM
[2024-10-21] MEDS: MORPHINE SULFATE 4 MG/ML SYRINGE IV STA (14:09)
[2024-10-21 14:41] VITALS: BP 148/100; PULSE 106; RESP 20
--- NOTE | 2024-10-21 14:43 | US ---
EXAMINATION TYPE: US pelvis complete transvag DATE OF EXAM: 10/21/2024 COMPARISON: CT CLINICAL INDICATION: Female, 79 years old with history of pelvic mass; PELVIC PAIN AND BACK PAIN, abn CT TECHNIQUE: TA/TV. Transabdominal grayscale sonographic images of the pelvis were acquired. Transvaginal sonographic im ages FINDINGS: Date of LMP: 20+ years ago EXAM MEASUREMENTS: Uterus: 5.8 x 3.2 x 2.3 cm Endometrial Stripe: 0.7 cm Right Ovary: not seen Left Ovary: not seen 1. Uterus: Anteverted peripheral calcifications seen 2. Endometrium: thickened 3. Right Ovary: not seen 4. Left Ovary: not seen 5. Bilateral Adnexa: 2 complex lesion noted, one within right adnexa = 3.9 x 3.4 x 3.1cm, and one si tting more midline pelvis = 11.3 x 9.4 x 9.3cm 6. Posterior cul-de-sac: wnl IMPRESSION: Complex cystic lesion possibly representing an enlarged ovary with large simple appearing fluid colle ction more posteriorly. Further evaluation MRI with contrast should be used for complete evaluation. Correlate with history of surgical intervention. The larger cyst could represent a seroma versus lymp hangioma versus ovarian cyst. The right ovarian complex cystic mass. [facility], Workstation: [facility], 10/21/2024 2:41 PM
--- NOTE | 2024-10-21 15:23 | ED ---
Medical Decision Making - Lab Data Result diagrams: 10/21/24 11:22 10/21/24 11:22 Lab Results 10/21/24 10/21/24 10/21/24 Range/Units 11:22 11:22 11:22 WBC 7.6 (3.8-10.6) k/uL RBC 5.03 (3.80-5.40) m/uL Hgb 13.0 D (11.4-16.0) gm/dL Hct 42.2 (34.0-46.0) % MCV 83.8 D (80.0-100.0) fL MCH 25.9 (25.0-35.0) pg MCHC 30.8 L (31.0-37.0) g/dL RDW 20.2 H (11.5-15.5) % Plt Count 313 (150-450) k/uL MPV 7.2 Neutrophils % 84 % Lymphocytes % 10 % Monocytes % 4 % Eosinophils % 1 % Basophils % 0 % Neutrophils # 6.4 (1.3-7.7) k/uL Lymphocytes # 0.7 L (1.0-4.8) k/uL Monocytes # 0.3 (0-1.0) k/uL Eosinophils # 0.1 (0-0.7) k/uL Basophils # 0.0 (0-0.2) k/uL Hypochromasia Marked Anisocytosis Moderate Microcytosis Slight PT 10.6 (10.0-12.5) sec INR 0.9 (<1.2) APTT 22.9 (22.0-30.0) sec Sodium 137 (137-145) mmol/L Potassium 4.5 (3.5-5.1) mmol/L Chloride 101 (98-107) mmol/L Carbon Dioxide 30 (22-30) mmol/L Anion Gap 6 mmol/L BUN 18 H (7-17) mg/dL Creatinine 0.78 (0.52-1.04) mg/dL Est GFR (CKD-EPI)AfAm 85 (>60 ml/min/1.73 sqM) Est GFR (CKD-EPI)NonAf 73 (>60 ml/min/1.73 sqM) Glucose 99 (74-99) mg/dL Calcium 9.9 (8.4-10.2) mg/dL Total Bilirubin 0.8 (0.2-1.3) mg/dL AST 37 H (14-36) U/L ALT 23 (4-34) U/L Alkaline Phosphatase 77 (38-126) U/L Total Protein 7.2 (6.3-8.2) g/dL Albumin 4.2 (3.5-5.0) g/dL Lipase 73 (23-300) U/L Disposition Clinical Impression: Back pain, Pelvic mass Disposition: HOME SELF-CARE Condition: Fair Prescriptions: methocarbamoL [Robaxin] 1,000 mg PO TID PRN #24 tab PRN Reason: Pain Is patient prescribed a controlled substance at d/c from ED?: No Referrals: Joey Salas [STAFF PHYSICIAN] - 1-2 days Lyssa Fofana DO [Doctor of Osteopathic Medicine] - 1-2 days Adam Blakely DO [Primary Care Provider] - 1-2 days
== END 2024-10-21 15:28 | disposition home or self-care (01) ==
LOC: EC 10:40
DX: M54.9 Dorsalgia, unspecified (principal); N94.89 Other specified conditions associated with female genital organs and menstrual cycle; R00.0 Tachycardia, unspecified; F17.200 Nicotine dependence, unspecified, uncomplicated; Z88.1 Allergy status to other antibiotic agents; Z88.2 Allergy status to sulfonamides; Z88.5 Allergy status to narcotic agent; Z88.6 Allergy status to analgesic agent; Z88.8 Allergy status to other drugs, medicaments and biological substances
CPT/HCPCS: 36415; 80053; 83690; 85025; 85610; 85730; 76856; 76830; 74177; 99284; 96374; J2270; Q9967

== ENCOUNTER → 2024-10-24 | Outpatient (CLI) | payer MEDICARE ==
--- NOTE | 2024-10-24 12:30 | XR ---
EXAMINATION TYPE: XR thoracic spine 2V, XR lumbar spine 2 or 3V DATE OF EXAM: 10/24/2024 10:35 AM COMPARISON: None CLINICAL INDICATION: Female, 79 years old with history of [id number] LBP,THOR PAIN; [facility] TECHNIQUE: XR thoracic spine 2V, XR lumbar spine 2 or 3V views of the spine in Frontal and lateral pr ojections. 3 views of the lumbar spine. FINDINGS: Multilevel degeneration changes throughout the spine with osteophyte formation and facet joint arthro makenzie. Grade 2 anterolisthesis of L5 and S1. Spinal canal is grossly patent. Neural foramen appear pa tent. The remainder of the thorax and abdomen appeared without acute process. Mild osteophyte formati on of the sacroiliac joints bilaterally. IMPRESSION: 1. Compression deformity of the thoracic spine correlate with MRI to exclude acute/subacute fracture . 2. Moderate multilevel degeneration changes of the spine. 3. Grade 2 anterolisthesis of L5 on S1. [facility], , 10/24/2024 12:28 PM
== END | disposition home or self-care (01) ==
LOC: RADXRYALE 09:58
PROVIDERS: ATTEND Physician Assistant Medical
DX: M51.369 Other intervertebral disc degeneration, lumbar region without mention of lumbar back pain or lower extremity pain (principal); M48.54XA Collapsed vertebra, not elsewhere classified, thoracic region, initial encounter for fracture; M43.17 Spondylolisthesis, lumbosacral region
CPT/HCPCS: 72070; 72100

== ENCOUNTER → 2024-11-18 | Outpatient (CLI) | payer MEDICARE ==
--- NOTE | 2024-11-18 15:50 | US ---
EXAMINATION TYPE: US venous doppler duplex LE LT DATE OF EXAM: 11/18/2024 3:37 PM COMPARISON: NONE CLINICAL INDICATION: Female, 79 years old with history of R60.9 EDEMA M79.672 PAIN IN LEFT LEG; edema , Pain TECHNIQUE: The lower extremity deep venous system is examined utilizing real time linear array sonog cassandra with graded compression, color doppler sonography, and spectral doppler. SIDE PERFORMED: Left FINDINGS: VESSELS IMAGED: Common Femoral Vein Deep Femoral Vein Greater Saphenous Vein * Femoral Vein Popliteal Vein Small Saphenous Vein * Proximal Calf Veins (* superficial vessels) Left Leg: Negative for DVT, Color Doppler imaging shows patency of the vessels. Spectral waveforms a re within normal limits. IMPRESSION: 1. Left lower extremity ultrasound negative for deep venous thrombosis [facility], , 11/18/2024 3:48 PM
== END | disposition home or self-care (01) ==
LOC: RADUSWWP 15:21
PROVIDERS: ATTEND Family Medicine
DX: R60.9 Edema, unspecified (principal); M79.672 Pain in left foot

== ENCOUNTER → 2024-11-18 | Outpatient (CLI) | payer MEDICARE ==
--- NOTE | 2024-11-18 14:42 | XR ---
EXAMINATION TYPE: XR ankle complete LT, XR foot complete LT DATE OF EXAM: 11/18/2024 2:20 PM COMPARISON: None CLINICAL INDICATION: Female, 79 years old with history of [id number] LT FOOT PAIN; [facility], pain TECHNIQUE: XR ankle complete LT, XR foot complete LT; frontal, lateral and oblique projections. FINDINGS: There is no evidence of acute osseous pathology. No evidence of subluxation or dislocation. Mild sof t tissue swelling throughout the lower extremity visualized. No radiopaque foreign bodies are identif ied. No evidence of osseous erosion to suggest osteomyelitis. Multifocal degeneration changes through out the joints of the foot with osteophyte formation and joint space narrowing. No radiopaque foreign body. IMPRESSION: 1. No evidence of acute fracture. 2. Subcutaneous swelling around the ankle correlate for systemic causes. No evidence for subcutaneous gas or osseous erosion. [facility], , 11/18/2024 2:39 PM
== END | disposition home or self-care (01) ==
LOC: RADXRYALE 13:51
PROVIDERS: ATTEND Physician Assistant Medical
DX: M25.473 Effusion, unspecified ankle (principal)

== ENCOUNTER → 2025-01-13 | Outpatient (CLI) | payer MEDICARE ==
--- NOTE | 2025-01-13 11:20 | XR ---
EXAMINATION TYPE: XR lumbar spine 2 or 3V DATE OF EXAM: 01/13/2025 CLINICAL INDICATION: Female, 79 years old with history of [id number] DDD,LT HIP PAIN, pain TECHNIQUE: Frontal and lateral images of the lumbar spine are obtained. COMPARISON: Lumbar spine x-ray October 24, 2024 FINDINGS: Osseous structures remain demineralized which is noted to lower radiographic sensitivity f or evaluation of fine anatomic detail There are 5 lumbar type vertebral bodies redemonstrated. The l umbar spine shows persistent grade 2 anterolisthesis of L5 on S1. Mild to moderate disc space narrowi ng at L5-S1 level is redemonstrated. Stable mild disc space narrowing at L4-L5 level. Vertebral body heights are preserved. Overlying arterial vascular calcification is redemonstrated. IMPRESSION: As above. [facility], , 01/13/2025 11:17 AM
--- NOTE | 2025-01-15 11:13 | XR ---
EXAMINATION TYPE: XR Hip Complete LT DATE OF EXAM: 01/13/2025 CLINICAL INDICATION: Female, 79 years old with history of [id number] DDD,LT HIP PAIN, Pain TECHNIQUE: AP and frogleg views of the left hip are obtained. COMPARISON: CT abdomen and pelvis October 21, 2024. FINDINGS: Osseous structures are demineralized. There is no acute fracture/dislocation evident in th e left hip. Mild to moderate narrowing and spurring in the left hip joint is present. There is medial arterial vascular calcification again seen. IMPRESSION: As above. [facility], , 01/15/2025 11:10 AM
== END | disposition home or self-care (01) ==
LOC: RADXRYALE 10:34
PROVIDERS: ATTEND Physician Assistant Medical
DX: M51.362 Other intervertebral disc degeneration, lumbar region with discogenic back pain and lower extremity pain (principal)
CPT/HCPCS: 72100; 73502